=== PATIENT | male | born 1975 | race Caucasian/White ===

== ENCOUNTER 2017-10-15 19:37 | Emergency (ER) | payer OTHER ==
[~2017-10-15] VITALS: Ht 180.3 cm; Wt 92.5 kg
[~2017-10-15 19:37] MED LIST: BUPROPION XL300 MG PO; CEPHALEXIN500 MG PO; CYCLOBENZAPRINE10 MG PO; KETOROLAC TROME10 MG PO; MOBIC7.5 MG PO; NORCO 5-325 TA1 EACH PO; OMEPRAZOLE20 MG; PEPCID20 MG PO; PERCOCET 7.5-31 EACH PO; SUCRALFATE1 GM PO; ZOFRAN ODT4 MG PO; ZOFRAN4 MG PO
[2017-10-15] MEDS ORDERED: MEDROL4 M1 PO (20:27)
[2017-10-15] MEDS ORDERED: PROVENTIL HFA6.7 GM INH (20:27)
[2017-10-15] MEDS ORDERED: ZITHROMAX250 MG PO (20:27)
== END 2017-10-15 20:43 | disposition home or self-care (01) ==
LOC: ED 19:37
DX: J20.9 Acute bronchitis, unspecified (principal); K21.9 Gastro-esophageal reflux disease without esophagitis; F17.200 Nicotine dependence, unspecified, uncomplicated; Z79.899 Other long term (current) drug therapy
CPT/HCPCS: 99283

== ENCOUNTER 2018-05-10 08:39 | Emergency (ER) | payer OTHER ==
[~2018-05-10] VITALS: Ht 180.3 cm; Wt 92.5 kg
[~2018-05-10 08:39] MED LIST changes: +MEDROL4 M1 PO; +PROVENTIL HFA6.7 GM INH; +ZITHROMAX250 MG PO
== END 2018-05-10 09:57 | disposition home or self-care (01) ==
LOC: ED 08:39
PROC: 0HQGXZZ Repair Left Hand Skin, External Approach (ICD-10-PCS; principal; 2018-05-10)
DX: S61.012A Laceration without foreign body of left thumb without damage to nail, initial encounter (principal); F17.200 Nicotine dependence, unspecified, uncomplicated; Z79.899 Other long term (current) drug therapy; Z23 Encounter for immunization; W45.8XXA Other foreign body or object entering through skin, initial encounter
CPT/HCPCS: 12001; 90471; 90715; 99282

== ENCOUNTER 2018-05-20 08:50 | Emergency (ER) | payer OTHER ==
[~2018-05-20] VITALS: Ht 180.3 cm; Wt 92.5 kg
== END 2018-05-20 09:21 | disposition home or self-care (01) ==
LOC: ED 08:50
DX: Z48.02 Encounter for removal of sutures (principal)

== ENCOUNTER 2019-10-13 06:55 | Day surgery (SDC) | payer OTHER ==
[~2019-10-13] VITALS: Ht 180.3 cm; Wt 108.9 kg
--- NOTE | 2019-10-13 07:17 | NUR ---
RT ROBI IN ROOM FOR SMOKING SENSATION
--- NOTE | 2019-10-13 08:17 | NUR ---
10/13/19 0817 Patricia Muñoz 0814 PT ARRIVED TO PACU ON 2 VIA NC, PT WAKES EASILY TO VERBAL STIMULI AND IS REORIENTED TO PACU AND ENCOURAGED TO PASS GAS/AIR. VSS.
--- NOTE | 2019-10-14 07:44 | OR ---
[facility] [address] [place], [place] [address] Signed DATE OF OPERATION: 10/13/2019 SURGEON: Adalgisa Peres MD PREOPERATIVE DIAGNOSIS: Diarrhea and episodic rare rectal bleeding. POSTOPERATIVE DIAGNOSIS: Small polyps, likely hyperplastic (x5). PROCEDURE PERFORMED: Total colonoscopy to cecum with cold morcellation polypectomy x5. ANESTHESIA: Intravenous sedation, fentanyl 100 mcg and Versed 5 mg. INDICATION: This 44-year-old white man is a patient of CHRIS Diallo who has had complaints of diarrhea and very rare episodic bright red rectal bleeding. He is admitted to undergo colonoscopy to better characterize the problem. His family history regarding colon cancer is uncertain as he is adopted. He has had hyperplastic polyps in the past. He has also had cholecystectomy in January of 2016. It is possible that his diarrhea represents a coloretic cause. The risks of bleeding, infection, and perforation were reviewed with him regarding colonoscopy. He understands and wished to proceed. Additionally, it is noted that he has had C difficile colitis in the past. FINDINGS: There is no evidence of C difficile colitis. The prep was good. Complete colonoscopy was undertaken to the cecum. There was a small polyp of the cecum and several in the sigmoid and hyperplastic appearing polyps of the rectosigmoid. All were excised with cold morcellation technique. DESCRIPTION OF PROCEDURE: The patient was brought to the endoscopy suite and placed in lateral decubitus position and given intravenous sedation to the point of slurred speech and nystagmus. Digital rectal examination was normal. An Olympus video colonoscope was passed in the rectum and manipulated throughout the colon. A small polyp was noted in the sigmoid, which was excised. The scope was Electronically Signed By: ADALGISA PERES MD 10/14/19 0744 PATIENT NAME: CAROLE QUINTANA OPERATIVE REPORT DATE OF : 77 REPORT #: [id number] PHYSICIAN: ADALGISA PERES MD PCP: YIMI GRUBER PA-C REPORT IS CONFIDENTIAL AND NOT TO BE RELEASED WITHOUT AUTHORIZATION [facility] [address] [place], [place] [address] Signed advanced beyond this ultimately to the cecum itself. The ileocecal valve and appendiceal orifice were normal. A small polyp was noted in the cecum. This was excised with cold morcellation technique. The scope was withdrawn and examination throughout showed no sign of abnormality into the mid left colon where a small polyp was noted. This was excised as well. Two other similar such polyps were noted in the area and passed as a same specimen. Further withdrawal ultimately showed in the rectosigmoid, hyperplastic appearing polyps, several in number, all excised completely. Retroflexed view showed some internal hemorrhoidal changes. No other problems of concern. The scope was withdrawn and removed. The patient was taken to recovery room in good condition. CONCLUDING DIAGNOSIS: Multiple polyps, most of them hyperplastic. PLAN: We will initiate cholestyramine as a method of symptom control. On the probability, his diarrhea represents a post cholecystectomy type diarrhea. MD DONITA Max/BO /[id number] cc: CHRIS Diallo Copies: ~ Electronically Signed By: ADALGISA PERES MD 10/14/19 0744 PATIENT NAME: CAROLE QUINTANA OPERATIVE REPORT DATE OF : 77 REPORT #: [id number] PHYSICIAN: ADALGISA PERES MD PCP: YIMI GRUBER PA-C REPORT IS CONFIDENTIAL AND NOT TO BE RELEASED WITHOUT AUTHORIZATION
--- NOTE | 2019-10-14 17:36 | PATH ---
[facility] [address] [facility] [place], [place] [address] Signed SPECIMEN(S): A SIGMOID POLYPS SPECIMEN(S): B CECAL POLYPS SPECIMEN(S): C MID DESCENDING POLYPS SPECIMEN(S): D COLON POLYP AT 20 CM SPECIMEN(S): E RECTAL POLYP SPECIMEN(S): F RECTUM SPECIMEN SOURCE: A. SIGMOID POLYPS B. CECAL POLYPS C. MID DESCENDING POLYPS D. COLON POLYP AT 20 CM E. RECTAL POLYP F. RECTUM CLINICAL HISTORY: Diarrhea. Postop: Multiple polyps. MICROSCOPIC DESCRIPTION: Histologic sections of all submitted blocks are examined by light microscopy. These findings, together with the gross examination, support the pathologic diagnosis. FINAL PATHOLOGIC DIAGNOSIS: A. Colon, sigmoid, polyps, polypectomy: - Fragments of hyperplastic polyp(s). - Negative for dysplasia or malignancy. B. Colon, cecum, polyps, polypectomy: - Fragments of colonic mucosa with no histopathologic abnormality. - Negative for dysplasia or malignancy. C. Colon, descending/right, polyps, polypectomy: - Fragments of hyperplastic polyp(s). - Negative for dysplasia or malignancy. D. Colon, polyp at 20 cm, polypectomy: - Hyperplastic polyp. - Negative for dysplasia or malignancy. E. Rectum, polyp, polypectomy: - Fragments of hyperplastic polyp. - Negative for dysplasia or malignancy. F. Rectum, biopsy: - Fragment of hyperplastic polyp. - Fragment of rectal mucosa with mild hyperplastic mucosal changes. PATIENT NAME: LILIANCAROLE JAY PATHOLOGY DATE OF : 77 REPORT #: [id number] PHYSICIAN: MARYJO PATHOLOGY PCP: YIMI GRUBER PA-C REPORT IS CONFIDENTIAL AND NOT TO BE RELEASED WITHOUT AUTHORIZATION [facility] [address] [place], [place] [address] Signed - Negative for dysplasia or malignancy. NAL:emb:C2NR GROSS DESCRIPTION: Six specimens are received in six containers, labeled "TC." A. The specimen, labeled "TC, sigmoid polyps," is received in formalin and consists of three phelps tissue fragments ranging 0.4 to 0.2 cm. Specimen is entirely submitted in cassette (A1). B. The specimen, labeled "TC, cecal polyps," is received in formalin and consists of three phelps tissue fragments measuring 0.3 cm each. Specimen is entirely submitted in cassette (B1). C. The specimen, labeled "TC, mid descending polyps," is received in formalin and consists of four phelps tissue fragments ranging 0.4-0.2 cm. Specimen is entirely submitted in cassette (C1). D. The specimen, labeled "TC, colon polyp at 20 cm," is received in formalin and consists of a single phelps tissue polyp measuring 0.4 x 0.3 x 0.2 cm. Specimen is entirely submitted in cassette (D1). E. The specimen, labeled "TC, rectal polyp," is received in formalin and consists of three minute phelps tissue fragments ranging 0.2 to 0.1 cm. Specimen is entirely submitted in cassette (E1). F. The specimen, labeled "TC, rectum," is received in formalin and consists of one phelps tissue polyp measuring 0.4 x 0.3 x 0.2 cm. Specimen is entirely submitted in cassette (F1). AT (under the direct supervision of a pathologist) The Gross Description was prepared using a voice recognition system. The report was reviewed for accuracy; however, sound-alike word errors, addition and/or deletions may occur. If there is any question about this report, please contact Client Services. PERFORMING LABORATORY: The technical component was performed by [facility], [address] [place] [id number] (Waiter/Waitress Second Class: Sofy Tomlinson MD; CLIA# [id number]). Professional interpretation [facility], [address] [address] (Waiter/Waitress Second Class: Sunny Elise MD; CLIA# [id number]). Diagnostician: Maryana Abel MD Pathologist Electronically Signed 10/14/2019 PATIENT NAME: CAROLE QUINTANA PATHOLOGY DATE OF : 77 REPORT #: [id number] PHYSICIAN: MARYJO PATHOLOGY PCP: YIMI GRUBER PA-C REPORT IS CONFIDENTIAL AND NOT TO BE RELEASED WITHOUT AUTHORIZATION [facility] [address] [place], [place] [address] Signed Copies: ~ PATIENT NAME: CAROLE QUINTANA PATHOLOGY DATE OF : 77 REPORT #: [id number] PHYSICIAN: MARYJO FUNEZ PCP: YIMI GRUBER PA-C REPORT IS CONFIDENTIAL AND NOT TO BE RELEASED WITHOUT AUTHORIZATION
== END 2019-10-13 08:52 | disposition home or self-care (01) ==
LOC: OPS 06:55 → DS 06:55 → OPS 08:52
PROVIDERS: Surgery
PROC: 0DBH8ZZ Excision of Cecum, Via Natural or Artificial Opening Endoscopic (ICD-10-PCS; 2019-10-13)
PROC: 0DBM8ZZ Excision of Descending Colon, Via Natural or Artificial Opening Endoscopic (ICD-10-PCS; 2019-10-13)
PROC: 0DBP8ZZ Excision of Rectum, Via Natural or Artificial Opening Endoscopic (ICD-10-PCS; 2019-10-13)
PROC: 0DBE8ZZ Excision of Large Intestine, Via Natural or Artificial Opening Endoscopic (ICD-10-PCS; 2019-10-13)
PROC: 0DBN8ZZ Excision of Sigmoid Colon, Via Natural or Artificial Opening Endoscopic (ICD-10-PCS; principal; 2019-10-13 06:45)
DX: K63.5 Polyp of colon (principal); K62.1 Rectal polyp; K64.8 Other hemorrhoids; K52.9 Noninfective gastroenteritis and colitis, unspecified; F17.210 Nicotine dependence, cigarettes, uncomplicated; K21.9 Gastro-esophageal reflux disease without esophagitis; Z90.49 Acquired absence of other specified parts of digestive tract; Z79.899 Other long term (current) drug therapy
CPT/HCPCS: 99406; J2250; J3010; J7121

== ENCOUNTER 2020-05-26 12:46 | Emergency (ER) | payer OTHER ==
[~2020-05-26] VITALS: Ht 180.3 cm; Wt 108.9 kg
--- OUTSIDE RECORDS SUMMARY | ~2020-05-26 | XMS | Clinical Summary ---
Demographics + + + | Address | [address] | | | [place] [address] | + + + | Home Phone | | + + + | Preferred Language | Unknown | + + + | Marital Status | Single | + + + | Holiness Affiliation | Unknown | + + + | Race | White | + + + | Ethnic Group | Not or | + + + Author + + + | Author | [facility] | | | and [place] | + + + | Organization | [facility] | | | [facility] [place] | + + + | Address | Unknown | + + + | Phone | Unavailable | + + + Support + + +---------+ + | Name | Relationship | Address | Phone | + + +---------+ + | Provided None | ECON | Unknown | | + + +---------+ + Care Team Providers + +------+ + | Care Competitive Intelligence Manager Name | Role | Phone | + +------+ + | Hina Kim | PCP | | | PA-C | | | + +------+ + Allergies No Known Allergies Medications + + + +---------+------+------+-------+ | Medication | Sig | Dispensed | Refills | Star | End | Statu | | | | | | t | Date | s | | | | | | Date | | | + + + +---------+------+------+-------+ | omeprazole | Take 20 mg by mouth | | 0 | 07/1 | | Activ | | (PRILOSEC) 20 mg | Daily. | | | 1/20 | | e | | capsule | | | | 19 | | | + + + +---------+------+------+-------+ | NICOTROL NS 10 | 10 mg by Nasal route | | 0 | 07/1 | | Activ | | MG/ML SOLN | Daily. | | | 20 | | e | | | | | | 19 | | | + + + +---------+------+------+-------+ | buPROPion HCl | Take by mouth. | | 0 | | | Activ | | (WELLBUTRIN PO) | | | | | | e | + + + +---------+------+------+-------+ | FLUOXETINE HCL PO | Take by mouth. | | 0 | | | Activ | | | | | | | | e | + + + +---------+------+------+-------+ Active Problems + + + | Problem | Noted Date | + + + | Abdominal bloating | 05/27/2019 | + + + | Calculus of gallbladder with cholecystitis | 05/27/2019 | + + + | Clostridium difficile colitis | 05/27/2019 | + + + | Dyspeptic diarrhea | 05/27/2019 | + + + Social History + +-------+ +--------+------+ | Tobacco Use | Types | Packs/Day | Years | Date | | | | | Used | | + +-------+ +--------+------+ | Light Tobacco Smoker | | | | | + +-------+ +--------+------+ + +---+---+---+ | Smokeless Tobacco: | | | | | Never Used | | | | + +---+---+---+ + + | Comments: Working on quitting | + + + + +---------+ + | Alcohol Use | Drinks/Week | oz/Week | Comments | + + +---------+ + | Never | | | | + + +---------+ + + + + + | Alcohol Habits | Answer | Date Recorded | + + + + | How often do you have a drink containing | Never | 05/27/2019 | | alcohol? | | | + + + + | How many drinks containing alcohol do you | Not asked | | | have on a typical day when you are | | | | drinking? | | | + + + + | How often do you have six or more drinks on | Not asked | | | one occasion? | | | + + + + + + + | Sex Assigned at | Date Recorded | | | | + + + | Not on file | | + + + Last Filed Vital Signs + + + + + | Vital Sign | Reading | Time Taken | Comments | + + + + + | Blood Pressure | - | - | | + + + + + | Pulse | - | - | | + + + + + | Temperature | - | - | | + + + + + | Respiratory Rate | - | - | | + + + + + | Oxygen Saturation | - | - | | + + + + + | Inhaled Oxygen | - | - | | | Concentration | | | | + + + + + | Weight | 104.3 kg (230 lb) | 05/27/2019 3:42 PM | | | | | PDT | | + + + + + | Height | 180.3 cm (5' 11") | 05/27/2019 3:42 PM | | | | | PDT | | + + + + + | Body Mass Index | 32.08 | 05/27/2019 3:42 PM | | | | | PDT | | + + + + + Plan of Treatment + + + + + | Health Maintenance | Due Date | Last | Comments | | | | Done | | + + + + + | Hepatitis C | | | | | Screening | 6 | | | + + + + + | Vaccine: | | | | | Pneumococcal 19-64 | 2 | | | | (1 of 1 - PPSV23) | | | | + + + + + | Vaccine: Influenza | | 09/04/20 | | | (#1) | 0 | 09 | | + + + + + | Vaccine: | | 05/10/20 | | | Dtap/Tdap/Td (2 - | 8 | 18 | | | Td) | | | | + + + + + Results Not on filefrom Last 3 Months Insurance + +--------+ +--------+ +---------+--------+ | Payer | Benefi | Subscriber | Effect | Phone | Address | Type | | | t Plan | ID | raymond | | | | | | / | | Dates | | | | | | Group | | | | | | + +--------+ +--------+ +---------+--------+ | [employer] | MOD[employer] | [id number] | | [phone] | | Medica | | MEDICAID HMO | HEALTH | | [phone]-[id number] | 1 | | id | | | MDCD | | esent | | | | | | [place]MO [place] | | | | | | + +--------+ +--------+ +---------+--------+ + +--------+ +--------+ + + | Guarantor Name | Accoun | Relation to | Date | Phone | Billing Address | | | t Type | Patient | of | | | | | | | | | | + +--------+ +--------+ + + | Freddie Caraballo | Person | Self [birth year] | [address] | | | al/Fam | | 1974 | [phone] | [place] | | | estela | | | 9 (Home) | [address] | | | | | | [phone] | | | | | | | 1 (Work) | | + +--------+ +--------+ + + | Freddie Caraballo | Person | Self [birth year] | | [address] | | | al/Fam | | 1974 | [phone] | [place] | | | estela | | | 9 (Home) | [address] | | | | | | [phone] | | | | | | | 1 (Work) | | + +--------+ +--------+ + + Advance Directives + + + + + | Type | Date Recorded | Patient | Explanation | | | | Enamel Dipper | | + + + + + | Power of | | | | | Cook Manager | | | | + + + + + | Advance | | | | | Directive | | | | + + + + +
--- OUTSIDE RECORDS SUMMARY | ~2020-05-26 | XMS | Encounter Summary ---
Demographics + + + | Address | [address] | | | [place] [address] | + + + | Home Phone | | + + + | Preferred Language | Unknown | + + + | Marital Status | Single | + + + | Moravian Affiliation | Unknown | + + + | Race | White | + + + | Ethnic Group | Not or | + + + Author + + + | Author | [facility] | | | and [place] | + + + | Organization | [facility] | | | and [...] Team Providers + +------+ + | Care Flame Annealing Machine Operator Name | Role | Phone | + +------+ + | Hina Kim | PCP | | | PA-C | | | + +------+ + Encounter Details +--------+ + + + + | Date | Type | Department | Care Team | Description | +--------+ + + + + | 05/07/ | Imaging | [facility] | Provider, | | | 2019 | Exam | [facility] | Historical, MD [address] | | | | | [address] | | | | | [address] | [place] [address] | | | | | [place] [address] | | | | | | [phone] | | | +--------+ + + + + Social History + +-------+ +--------+------+ | Tobacco Use | Types | Packs/Day | Years | Date | | | | | Used | | + +-------+ +--------+------+ | Never Assessed | | | | | + +-------+ +--------+------+ + + + | Sex Assigned at | Date Recorded | | | | + + + | Not on file | | + + + documented as of this encounter Plan of Treatment Not on filedocumented as of this encounter Procedures + +--------+ + + + | Procedure Name | Priori | Date/Time | Associated Diagnosis | Comments | | | ty | | | | + +--------+ + + + | XR KNEE LEFT 1 - 2 | Routin | 09/07/2018 | | Results for this | | VW | e | 12:00 AM | | procedure are in the | | | | PST | | results section. | + +--------+ + + + documented in this encounter Results XR Knee Left 1 - 2 Vw (09/07/2018 12:00 AM PST) + + | Specimen | + + | | + + + + + | Narrative | Performed At | + + + | External films for comparison only | [facility] | | | | | No results will be in the chart. | | + + + + +---------+ + + | Performing | Address | City/State/Zipcode | Phone Number | | Organization | | | | + +---------+ + + | [facility] | | | | + +---------+ + + documented in this encounter Visit Diagnoses Not on filedocumented in this encounter"
--- OUTSIDE RECORDS SUMMARY | ~2020-05-26 | XMS | Encounter Summary ---
Demographics + + + | Address | [address] | | | [place] [address] | + + + | Home Phone | | + + + | Preferred Language | Unknown | + + + | Marital Status | Single | + + + | Advent Affiliation | Unknown | + + + | Race | White | + + + | Ethnic Group | Not or | + + + Author + + + | Author | [facility] | | | and [place] | + + + | Organization | [facility] | | | and [...] Team Providers + +------+ + | Care Sales And Marketing Administrator Name | Role | Phone | + +------+ + | Hina Kim | PCP | | | PA-C | | | + +------+ + Encounter Details +--------+ + + + + | Date | Type | Department | Care Team | Description | +--------+ + + + + | 09/07/ | Imaging | [facility] | Provider, | Canceled (OTHER) | | 2019 | Exam | [facility] | MD [address] | | | | | IMAGING [address] | [address] | | | | | [address] | [place] [address] | | | | | [place] [address] | | | | | | [phone] | | | +--------+ + + + [...] Not on filedocumented as of this encounter Visit Diagnoses Not on filedocumented in this encounter"
--- OUTSIDE RECORDS SUMMARY | ~2020-05-26 | XMS | Encounter Summary ---
Demographics + + + | Address | [address] | | | [place] [address] | + + + | Home Phone | | + + + | Preferred Language | Unknown | + + + | Marital Status | Single | + + + | Pentecostalism Affiliation | Unknown | + + + | Race | White | + + + | Ethnic Group | Not or | + + + Author + + + | Author | [facility] | | | and [place] | + + + | Organization | [facility] | | | and [...] Team Providers + +------+ + | Care Imaging System Administrator Name | Role | Phone | + +------+ + PCP | Unavailable | + +------+ + Encounter Details +--------+ + + + + | Date | Type | Department | Care Team | Description | +--------+ + + + + | 07/09/ | Emergency | [facility] | [place], | MYALGIA AND MYOSITIS | | 2001 | | MEDICAL CENTER | MD [address] | NOS | | | | EMERGENCY CENTER | [place] | | | | | [address] | [address] | | | | | [place] | [phone] | | | | | [address] | | | | | | [phone] | | | +--------+ + + + [...] filedocumented as of this encounter Visit Diagnoses + + | Diagnosis | + + | Myalgia and myositis, unspecified Mylagia and myositis, unspecified | + + documented in this encounter"
--- OUTSIDE RECORDS SUMMARY | ~2020-05-26 | XMS | Encounter Summary ---
Demographics + + + | Address | [address] | | | [place] [address] | + + + | Home Phone [...] Author + + + | Author | [facility] | | | and [place] | + + + | Organization | [facility] | | [...] Team Providers + +------+ + | Care Dial Screw Assembler Name | Role | Phone | + +------+ + PCP | Unavailable | + +------+ + Encounter Details +--------+ + + + + | Date | Type | Department | Care Team | Description | +--------+ + + + + | 01/01/ | Emergency | [facility] | Conversion | | | 2001 | | MEDICAL CENTER | Transaction, | | | | | EMERGENCY CENTER | Provider Unknown | | | | | [address] | | | | | | [place], [place] | (Fax) | | | | | [address] | | | | | | [phone] | | | +--------+ + + + [...]
--- OUTSIDE RECORDS SUMMARY | ~2020-05-26 | XMS | Encounter Summary ---
Demographics + + + | Address | [address] | | | [place] [address] | + + + | Home Phone | | + + + | Preferred Language | Unknown | + + + | Marital Status | Single | + + + | Religion Affiliation | Unknown | + + + | Race | White | + + + | Ethnic Group | Not or | + + + Author + + + | Author | [facility] | | | and [place] | + + + | Organization | [facility] | | | and [...] Team Providers + +------+ + | Care Store Group Manager Name | Role | Phone | + +------+ + PCP | Unavailable | + +------+ + Encounter Details +--------+ + + + + | Date | Type | Department | Care Team | Description | +--------+ + + + + | 08/11/ | Emergency | [facility] | Conversion | [facility] | | 2001 | | MEDICAL CENTER | Transaction, | | | | | EMERGENCY CENTER | Provider Unknown | | | | | [address] [facility] | | | | | | [place], [place] | (Fax) | | | | | [address] | | | | | | [phone] | | | +--------+ + + + [...] + | Diagnosis | + + | Backache, unspecified | + + documented in this encounter"
--- OUTSIDE RECORDS SUMMARY | ~2020-05-26 | XMS | Encounter Summary ---
Demographics + + + | Address | [address] | | | [place] [address] | + + + | Home Phone | | + + + | Preferred Language | Unknown | + + + | Marital Status | Single | + + + | Mormon Affiliation | Unknown | + + + | Race | White | + + + | Ethnic Group | Not or | + + + Author + + + | Author | [facility] | | | and [place] | + + + | Organization | [facility] | | | [...] Team Providers + +------+ + | Care Excavator Backhoe Operator Name | Role | Phone | + +------+ + PCP | Unavailable | + +------+ + Encounter Details +--------+ + + + + | Date | Type | Department | Care Team | Description | +--------+ + + + + | 07/07/ | Emergency | [facility] | Kevin Rose, | Dysphagia | | 2001 | | MEDICAL CENTER | [address] | | | | | EMERGENCY CENTER | [place], [place] | | | | | [address] | [address] | | | | | [place], [place] | [phone] | | | | | [address] | | | | | | [phone] | | | +--------+ + + + [...] + | Diagnosis | + + | Dysphagia Dysphagia, unspecified | + + documented in this encounter"
--- OUTSIDE RECORDS SUMMARY | ~2020-05-26 | XMS | Encounter Summary ---
Demographics + + + | Address | [address] | | | [place] [address] | + + + | Home Phone | | + + + | Preferred Language | Unknown | + + + | Marital Status | Single | + + + | Church Affiliation | Unknown | + + + | Race | White | + + + | Ethnic Group | Not or | + + + Author + + + | Author | [facility] | | | and [place] | + + + | Organization | [facility] | | [...] Team Providers + +------+ + | Care Manager Steel Name | Role | Phone | + [...] | | | | [address] | [place] [address] | | | | | [place] [address] | | | | | | [phone] | | | +--------+ + + + [...]
--- OUTSIDE RECORDS SUMMARY | ~2020-05-26 | XMS | Encounter Summary ---
Demographics + + + | Address | [address] | | | [place] [address] | + + + | Home Phone | | + + + | Preferred Language | Unknown | + + + | Marital Status | Single | + + + | Temple Affiliation | Unknown | + + + | Race | White | + + + | Ethnic Group | Not or | + + + Author + + + | Author | [facility] | | | and [place] | + + + | Organization | [facility] | | | [...] Team Providers + +------+ + | Care Four H [place] Agent Name | Role | Phone | + +------+ + PCP | Unavailable | + +------+ + Encounter Details +--------+ + + + + | Date | Type | Department | Care Team | Description | +--------+ + + + + | 11/18/ | Hospital | [facility] | Conversion | | | 2002 - | Encounter | CONVERSION [address] | Transaction, | | | | [address] | Provider Unknown | | | 12/15/ | | [place], [place] | [phone] | | | 2002 | | [address] | | | | | | [phone] | | | +--------+ + + + [...]
--- OUTSIDE RECORDS SUMMARY | ~2020-05-26 | XMS | Encounter Summary ---
Demographics + + + | Address | [address] | | | [place] [address] | + + + | Home Phone | | + + + | Preferred Language | Unknown | + + + | Marital Status | Single | + + + | Congregational Affiliation | Unknown | + + + | Race | White | + + + | Ethnic Group | Not or | + + + Author + + + | Author | [facility] | | | and [place] | + + + | Organization | [facility] | | [...] Team Providers + +------+ + | Care Junior Loan Processor Name | Role | Phone | + +------+ + | Hina Kim | PCP | | | PA-C | | | + +------+ + Reason for Referral Evaluate & Treat (Routine) +--------+ + + + + + | Status | Reason | Specialty | Diagnoses / | Referred By | Referred To | | | | | Procedures | Contact | Contact | +--------+ + + + + + | Closed | Specialty | Physical | Diagnoses | [place], | [facility] | | | Services | Therapy | Chronic | [place] | [facility] | | | Required | | pain of left | [facility], | PHYSICAL | | | | | knee | [address] | | | | | | [address] | [facility] | | | | | | [place], | [place], [place] | | | | | | [place] | [address] | | | | | | [address] | Phone: | | | | | | Phone: | [phone] | | | | | | [phone] | Fax: | | | | | | Fax: | [phone] | | | | | | [phone] | | +--------+ + + + + + Reason for Visit + + + | Reason | Comments | + + + | New Patient | | + + + | Knee Pain | Left | + + + Evaluate & Treat (Routine) +--------+--------+ + + + + | Status | Reason | Specialty | Diagnoses / | Referred By | Referred To | | | | | Procedures | Contact | Contact | +--------+--------+ + + + + | Closed | | Orthopedic | Diagnoses | Julio, | Nya, | | | | Surgery | Pain in | Hina | Jeison | | | | | left knee | Johanny, | MD [address] | | | | | | PA-C [address] | [address] | | | | | [address] | [address] [place] | | | | | | [place] | [place] | | | | | | [place], | [address] | | | | | | [place] | Phone: | | | | | | [address] | [phone] | | | | | | Phone: | Fax: | | | | | | [phone] | [phone] | | | | | | Fax: | | | | | | | [phone] | | +--------+--------+ + + + + Encounter Details +--------+---------+ + + + | Date | Type | Department | Care Team | Description | +--------+---------+ + + + | 05/27/ | Office | [facility] | Jeison Fay | Chronic pain of left | | 2019 | Visit | ORTHOPEDIC SURGERY | [address] | knee (Primary Dx) | | | | [address] | [address] [place] | | | | | [place] | [place] [address] | | | | | [address] | [phone] | | | | | [phone] | | | +--------+---------+ + + + Social History + +-------+ [...] + + documented as of this encounter Last Filed Vital Signs + + + [...] | | + + + + + documented in this encounter Patient Instructions Patient Instructions Jeison Fay MD - 05/27/2019 3:45 PM PDTFormatting of t his note might be different from the original. Knee Pain Knee pain is very common. It s especially common in active people who put a lot of pressu re on their knees, like runners. It affects women more often than men. Your kneecap (patella) is a thick, round bone. It covers and protects the front portion of your knee joint. It moves along a groove in your thighbone (femur) as part of the patellofem oral joint. A layer of cartilage surrounds the underside of your kneecap. This layer protect s it from grinding against your femur. When this cartilage softens and breaks down, it can cause knee pain. This is partly because of repetitive stress. The stress irritates the lining of the joint. This causes pain in the underlying bone. What causes knee pain? Many things can cause knee pain. You may have more than one cause. Some of these include: Overuse of the knee joint The kneecap doesn t line up with the tissue around it Damage to small nerves in the area Damage to the ligament-like structure that holds the kneecap in place (retinaculum) Breakdown of the bone under the cartilage Swelling in the soft tissues around the kneecap Injury You might be more likely to have knee pain if you: Exercise a lot Recently increased the intensity of your workouts Have a body mass index (BMI) greater than 25 Have poor alignment of your kneecap Walk with your feet turned overly outward or inward Have weakness in surrounding muscle groups (inner quad or hip adductor muscles) Have too much tightness in surrounding muscle groups (hamstrings or iliotibial band) Have a recent history of injury to the area Are female Symptoms of knee pain This type of knee pain is a dull, aching pain in the front of the knee in the area under an d around the kneecap. This pain may start quickly or slowly. Your pain might be worse when y ou squat, run, or sit for a long time. You might also sometimes feel like your knee is givin g out. You may have symptoms in one or both of your knees. Diagnosing knee pain Your healthcare provider will ask about your medical history and your symptoms. Be sure to describe any activities that make your knee pain worse. He or she will look at your knee. Th is will include tests of your range of motion, strength, and areas of pain of your knee. You r knee alignment will be checked. Your healthcare provider will need to rule out other causes of your knee pain, such as arth ritis. You may need an imaging test, such as an X-ray or MRI. Treatment for knee pain Treatments that can help ease your symptoms may include: Avoiding activities for a while that make your pain worse, returning to activity over ti me Icing the outside of your knee when it causes you pain Taking [id number]-kpcclsb pain medicine Wearing a knee brace or taping your knee to support it Wearing special shoe inserts to help keep your feet in the proper alignment Doing special exercises to stretch and strengthen the muscles around your hip and your k nee These steps help most people manage knee pain. But some cases of knee pain need to be treat ed with surgery. You may need surgery right away. Or you may need it later if other treatmen ts don t work. Your healthcare provider may refer you to an orthopedic surgeon. He or she will talk with you about your choices. Preventing knee pain Losing weight and correcting excess muscle tightness or muscle weakness may help lower your risk. In some cases, you can prevent knee pain. To help prevent a flare-up of knee pain, you do t hese things: Regularly do all the exercises your doctor or physical therapist advises Support your knee as advised by your doctor or physical therapist Increase training gradually, and ease up on training when needed Have an expert check your gait for running or other sporting activities Stretch properly before and after exercise Replace your running shoes regularly Lose excess weight When to call your healthcare provider Call your healthcare provider right away if: Your symptoms don t get better after a few weeks of treatment You have any new symptoms Date Last Reviewed: 12/16/201619997082-2490 [employer]. [address] [place] [address]. All [facility] reserved. This information is not intended as a substitute for professional medical care. Always follow your healthcare professional's instructions. documented in this encounter Progress Notes Jeison Fay MD - 05/27/2019 3:45 PM PDTFormatting of this note might be dif ferent from the original. [facility] HISTORY AND PHYSICAL EXAMINATION Pt. Name/Age/: Freddie Caraballo 43 y.o. 1975 Primary Care Physician: Hina Kim Chief Complaint/Reason for Visit: New Patient and Knee Pain (Left) History of Present Illness: The patient is a pleasant 43 y.o. male who presents with chronic left knee pain. He states that both of his knees have hurt since the fall he had 15 months ago. He fell 15 feet and landed on his feet on the concrete. He did not fell onto his side. He localizes the pain o n both sides to the joint line and just distal to it. He points across the entire knee. Si nce that time, steps, ladders, long walks, driving, riding in a car makes his pain worse. Mohsen jackson is tried anti-inflammatories which have not helped, ice and heat without relief. His pain is a 6 out of 10 at rest and a 9 out of 10 at its worst. He feels like this is been slowly getting worse over time. He is able to do some of his normal daily activities albeit with pain. He currently smokes about 1 to 2 cigarettes a day. Of note, he has not had any physi maninder therapy for this yet nor has he had any injections.. Past Medical History: History reviewed. No pertinent past medical history. Past Surgical History: Procedure Laterality Date MANDIBLE FRACTURE SURGERY Allergies: No Known Allergies Current Medications: Current Outpatient Medications Medication Sig Dispense Refill buPROPion HCl (WELLBUTRIN PO) Take by mouth. FLUOXETINE HCL PO Take by mouth. NICOTROL NS 10 MG/ML SOLN 10 mg by Nasal route Daily. omeprazole (PRILOSEC) 20 mg capsule Take 20 mg by mouth Daily. No current facility-administered medications for this visit. Family History: History reviewed. No pertinent family history. Social History: Social History Socioeconomic History Marital status: Single Spouse name: Not on file Number of children: Not on file Years of education: Not on file Highest education level: Not on file Social Needs Financial resource strain: Not on file Food insecurity - worry: Not on file Food insecurity - inability: Not on file Transportation needs - medical: Not on file Transportation needs - non-medical: Not on file Occupational History Not on file Tobacco Use Smoking status: Light Tobacco Smoker Smokeless tobacco: Never Used Tobacco comment: Working on quitting Substance and Sexual Activity Alcohol use: Never Frequency: Never Drug use: Never Sexual activity: Not on file Other Topics Concern Not on file Social History Narrative Not on file Review of Systems All of these are negative unless otherwise marked Eyes: [] Double vision [] Glasses/contacts [] Failing vision Respiratory: [] Asthma/Wheezing [] Pneumonia [] Night sweats [x] Shortness of breath [] Chronic cough [] Coughing up blood [] Exposure to tuberculosis Cardiovascular: [] Heart Problems [] Hypertension [] Heart murmur [] Palpitations [] Rheumatic fever [] Phlebitis [] Chest pain [] Ankle swelling [] Leg cramps [] Racin g heart [] Skipping beats [] Blood clots Urinary Tract: [] Painful urination [] Kidney Stones [] Any urine leakage [] Weak urine stream [] Night urination [] Urine infections [] Bedwetting [] Blood in urine Ear/Nose/Throat: [] Frequent Colds [] Sinus Disease [] Nose obstruction [] Sneezing Spells [] Change in taste [x] Artificial teeth [] Ears ringing [] Ear pain [] Hearing loss [] Teeth problems [] Hoarseness [] Neck swelling [] Sore throat [] Congestion [] Nosebleeds [x] Nasal allergies Gastrointestinal: [x] Abdominal pain [] Heartburn [x] Blood from rectum [x] Colitis [] Gallbladder problems [] Troub le swallowing [x] Bloated stomach [x] Change in stools [] Vomiting blood [] Nausea [x] Hemorrhoids [] Jaundice [] Hepatitis [x] Diarrhea [] Constipation [] Diverticulitis Musculoskeletal: [] Physical handicaps [x] Back or shoulder pain []Rheumatoid disease [] Osteoarthritis [x] Joint pain [] Joint swelling []Gout [x] Leg cramps at night Skin: [] Skin rashes [x] Itching/Burning [] Skin bruises easi ly [] Artificial tanning [] Skin cancer [] Hair loss [x] Changes in moles Psychiatric: [x] Depression [] Suicidal thoughts [] Sleep pattern changes [] Appetite changes [] Recent counseling [x] Nervousness/anxiety [] Physical violence [] Marital problems Neurological: [] Headaches [] Seizures [] Stroke/TIA [] Faintness [x] Tremors [] Numbness [] Dizziness [] Changes in handwriting [] Memory loss [] Shooting pains Endocrine: [] Thyroid [] Diabetes Systemic: []Weight loss/gain (over 10 lbs) []Fever/chills []Fatigue [] Sleeping Difficulties [] Speech change [] Voice change Admission Weight: Weight: 104.3 kg (230 lb) BMI: Body mass index is 32.08 kg/m. Physical Examination: Ht 1.803 m (5' 11") | Wt 104.3 kg (230 lb) | BMI 32.08 kg/m General: Alert, oriented, no acute distress HEENT: Normocephalic, atraumatic Cardiovascular: Regular rate and rhythm Respiratory: Breathing normally at a regular rate Ortho Exam Left Knee Exam Tenderness: Medial and lateral joint line bilaterally Right Knee Passive Range of Motion: 0/140 Left Knee Passive Range of Motion: 0/140 Right Knee Left Knee Anterior Drawer Negative Negative Posterior Drawer Negative Negative Elise's Test Negative Negative Varus Stress Negative Negative Valgus Stress Negative Negative Lexis's Negative Negative Patellar Translation 1+ 1+ Patellar grind Positive Negative Sensation intact to light touch in the first dorsal webspace, medial, lateral, dorsal and p lantar foot. Dorsalis pedis and posterior tibial pulses 2+. Able to plantarflex, dorsiflex, shanda and invert the ankle. Diagnostic Studies: Imaging 4 views of the left knee obtained today demonstrate mild medial joint space narrowing of th e knees bilaterally. No significant lateral joint space narrowing. No patellofemoral osteo arthritis is noted on the left side. No fractures or dislocations noted. Labs- No results found for: NA, K, CL, CO2, ANIONGAP, GLU, BUN, CREA, GFRNONAA, CALCIUM, ALBUMIN, BILITOT, TOTALPROTEIN, AST, ALT, ALKPHOS, WBC, HGB, HCT, MCV, LABPLAT, PLT, ESR, CRP, LIPAS E, AMYLASE, PT, INR Assessment and Plan: 1. Chronic pain of left knee XR Knee Left 4 + Vw The patient is a pleasant 43 y.o. male who presents with chronic left knee pain likely due to an impaction injury. This may be a subchondral injury or cartilaginous injury.. Treatmen t options were discussed with the patient including non-operative treatment modalities. Cons idering the nature of the patient's condition, decision was made to proceed with physical th erapy. Surgery would not likely to be helpful for this chronic condition. The goal of ther apy will be work on restoring normal strength and range of motion to the joint. His range o f motion is good but he may very well benefit from some strengthening. Hopefully that signi ficantly helps his pain. We will plan on seeing him back in 2 months. Follow-up: Return in about 2 months (around 07/27/2019). with no x-ray Portions of this report were transcribed using voice recognition software. Every effort wa s made to ensure accuracy; however, inadvertent computerized automatic coil machine operator errors may be pre sent. I appreciate the opportunity to help with the management of this patient. Jeison Fay MD documented in this encounter Plan of Treatment + + +--------+ + + | Name | Type | Priori | Associated Diagnoses | Order Schedule | | | | ty | | | + + +--------+ + + | [facility] | Outpatient | Routin | Chronic pain of | Ordered: 05/27/2019 | | Hospital Physical | Referral | e | left knee | | | Therapy, External - | | | | | | AMB Referral | | | | | + + +--------+ + + documented as of this encounter Results XR Knee Left 4 + Vw (05/27/2019 3:31 PM PDT) + + | Specimen | + + | | + + + + + | Narrative | Performed At | + + + | CLINICAL INFORMATION: Left Knee pain. COMPARISON: 09/07/2018. | [facility] | | FINDINGS: 4 views of the left knee. Bones: No fracture or | | | dislocation. No periostitis. Joints: Joint spaces are preserved | | | and subchondral surfaces are smooth. No significant joint effusion. | | | Superior patellar osteophyte formation. Soft tissue: No swelling | | | or abnormal calcification. IMPRESSION - Probable early | | | patellofemoral joint degenerative changes. Dictated and Signed by: | | | Emiliano Jenkins MD Electronically signed: 05/27/2019 7:27 PM | | + + + + + | Procedure Note | + + | Anuj Joseph Results In - 05/27/2019 7:30 PM PDT CLINICAL INFORMATION: Left Knee pain. | | | | COMPARISON: 09/07/2018. | | | | FINDINGS: | | 4 views of the left knee. | | | | Bones: No fracture or dislocation. No periostitis. | | | | Joints: Joint spaces are preserved and subchondral surfaces are smooth. No | | significant joint effusion. Superior patellar osteophyte formation. | | | | Soft tissue: No swelling or abnormal calcification. | | | | IMPRESSION - | | | | Probable early patellofemoral joint degenerative changes. | | | | Dictated and Signed by: Emiliano Jenkins MD | | Electronically signed: 05/27/2019 7:27 PM | + + + +---------+ + + | Performing | Address | City/State/Zipcode | Phone Number | | Organization | | | | + +---------+ + + | [facility] | | | | + +---------+ + + documented in this encounter Visit Diagnoses + + | Diagnosis | + + | Chronic pain of left knee - Primary Pain in joint, lower leg | + + documented in this encounter
--- OUTSIDE RECORDS SUMMARY | ~2020-05-26 | XMS | Encounter Summary ---
Demographics + + + | Address | [address] | | | [place] [address] | + + + | Home Phone [...] Author + + + | Author | [facility] | | | and [place] | + + + | Organization | [facility] | | | [...] Team Providers + +------+ + | Care Balloon Design Printer Name | Role | Phone | + +------+ + | Hina Kim | PCP | | | PA-C | | | + +------+ + Encounter Details +--------+ + + + + | Date | Type | Department | Care Team | Description | +--------+ + + + + | 05/27/ | [facility] | [facility] | Jeison Fay | Left knee pain, | | 2019 | Encounter | [facility] | [address] | unspecified | | | | [address] | [address] | chronicity | | | | [place], [place] | [place] [address] | | | | | [address] | [phone] | | | | | [phone] | | | +--------+ + + + [...] + + documented as of this encounter Medications at Time of Discharge + + + +---------+ + + | Medication | Sig | Dispensed | Refills | Start | End Date | | | | | | Date | | + + + +---------+ + + | buPROPion HCl | Take by mouth. | | 0 | | | | (WELLBUTRIN PO) | | | | | | + + + +---------+ + + | FLUOXETINE HCL PO | Take by mouth. | | 0 | | | + + + +---------+ + + | NICOTROL NS 10 | 10 mg by Nasal route | | 0 | 04/02/20 | | | MG/ML SOLN | Daily. | | | 19 | | + + + +---------+ + + | omeprazole | Take 20 mg by mouth | | 0 | 03/27/20 | | | (PRILOSEC) 20 mg | Daily. | | | 19 | | | capsule | | | | | | + + + +---------+ + + documented as of this encounter Plan of Treatment Not on filedocumented as of this encounter Procedures + +--------+ + + + | Procedure Name | Priori | Date/Time | Associated Diagnosis | Comments | | | ty | | | | + +--------+ + + + | XR KNEE LEFT 4 + VW | Routin | 05/27/2019 | Left knee pain, | Results for this | | | e | 3:31 PM | unspecified | procedure are in the | | | | PDT | chronicity | results section. | + +--------+ + + + documented in this encounter Results XR Knee Left 4 [...] + | Diagnosis | + + | Left knee pain, unspecified chronicity | + + documented in this encounter"
--- OUTSIDE RECORDS SUMMARY | ~2020-05-26 | XMS | Encounter Summary ---
Demographics + + + | Address | [address] | | | [place] [address] | + + + | Home Phone | | + + + | Preferred Language | Unknown | + + + | Marital Status | Single | + + + | Alevism Affiliation | Unknown | + + + | Race | White | + + + | Ethnic Group | Not or | + + + Author + + + | Author | [facility] | | | and [place] | + + + | Organization | [facility] | | [...] Team Providers + +------+ + | Care Historic Preservationist Name | Role | Phone | + +------+ + | Hina Kim | PCP | | | PA-C | | | + +------+ + Encounter Details +--------+ + + + + | Date | Type | Department | Care Team | Description | +--------+ + + + + | 07/10/ | Orders Only | [facility] | Hina Kim | | | 2018 | | CONVERSION [address] | [address] [place] | | | | | [address] | [address] | | | | | [place] | [place] | | | | | [address] | [address] | | | | | [phone] | [phone] | | | | | | | | +--------+ + + + [...] | + +--------+ + + + | ECHO INTERPRETATION | Routin | 07/10/2018 | | Results for this | | OF OUTSIDE FILMS | e | 1:42 PM | | procedure are in the | | | | PDT | | results section. | + +--------+ + + + documented in this encounter Results ECHO Interpretation of Outside Films (07/10/2018 1:42 PM PDT) + + | Specimen | + + | | + + + + + | Impressions | Performed At | + + + | 1. The left ventricle is normal in size, wall thickness and systolic | | | function EF 55-60%. 2. The right ventricle is normal in size and | | | function. 3. Mild tricuspid regurgitation with no pulmonary | | | hypertension. 4. There is no pericardial effusion. | | + + + + + + | Narrative | Performed At | + + + | Patient Name: Freddie Caraballo Date of : 1975 | | | Performing Physician: Seferino Hamlin | | | | | | INDICATIONS CHEST PAIN CONCLUSIONS 1. | | | The left ventricle is normal in size, wall thickness and systolic | | | function EF 55-60%. 2. The right ventricle is normal in size and | | | function. 3. Mild tricuspid regurgitation with no pulmonary | | | hypertension. 4. There is no pericardial effusion. FINDINGS | | | -------- ECG rhythm: Sinus rhythm. Study: A 2-dimensional | | | transthoracic echocardiogram with m-mode, spectral and color flow | | | Doppler was perfomed. Study: This was a technically adequate study. | | | Left Ventricle: Overall left ventricular systolic function is normal | | | with, an EF between 55 - 60 %. Left Ventricle: The left ventricle | | | cavity size is normal. Left Ventricle: Left ventricular wall | | | thickness is normal. Left Ventricle: The diastolic filling pattern is | | | normal for the age of the patient. Right Ventricle: The right | | | ventricle is normal in size and function. Left Atrium: The left | | | atrium is normal in size. Right Atrium: The right atrium is normal in | | | size. Aortic Valve: The aortic valve is trileaflet, and appears | | | anatomically normal. No aortic stenosis or regurgitation. Mitral | | | Valve: Normal appearing mitral valve. Mitral Valve: There is trace | | | mitral regurgitation. Tricuspid Valve: The tricuspid valve appears | | | structurally normal. Tricuspid Valve: Mild tricuspid regurgitation | | | present. Tricuspid Valve: There is no evidence of pulmonary | | | hypertension. Tricuspid Valve: The right ventricular systolic | | | pressure (pulmonary artery systolic pressure), as measured by Doppler, | | | is 21.62mmHg. Pulmonic Valve: The pulmonic valve was not well | | | visualized. Pericardium: There is no pericardial effusion. | | | Pericardium: No pleural effusion seen. IVC/Hepatic Veins: The | | | inferior vena cava is normal in size and collapses > 50 % with sniff, | | | indicating normal central venous pressures. Aorta: The aortic root, | | | ascending aorta and aortic arch are normal. MEASUREMENTS | | | Ao asc: 2.91 cm Ao sinus: 3.[address] junct: | | | 3.01 cm IVC: 1.90 cm LA Diam: 3.41 cm EDV(Teich): 93.58 | | | ml IVSd: 0.86 cm LVIDd: 4.52 cm LVPWd: 0.79 cm LVOT | | | Area: 3.83 cm2 LVOT Diam: 2.21 cm %FS: 39.06 % EF(Teich): | | | 69.62 % ESV(Teich): 28.43 ml LVIDs: 2.75 cm SV(Teich): | | | 65.15 ml RVIDd: 2.68 cm LVEF MOD A2C: 62.47 % SV MOD A2C: | | | 56.25 ml LVEF MOD A4C: 53.54 % SV MOD A4C: 63.32 ml EF | | | Biplane: 58.10 % LVEDV MOD BP: 104.99 ml LVESV MOD BP: | | | 43.98 ml LVEDV MOD A2C: 90.03 ml LVLd A2C: 8.79 cm LVEDV MOD | | | A4C: 118.26 ml LVLd A4C: 9.25 cm LVESV MOD A2C: 33.78 ml | | | LVLs A2C: 7.51 cm LVESV MOD A4C: 54.93 ml LVLs A4C: 7.18 cm | | | LAESV(A-L): 41.36 ml LAESV Index (A-L): 18.97 ml/m2 LAAs | | | A2C: 15.74 cm2 LAESV A-L A2C: 43.75 ml LALs A2C: 4.80 cm | | | LAAs A4C: 14.88 cm2 LAESV A-L A4C: 38.70 ml LALs A4C: 4.85 | | | cm RAAs: 14.68 cm2 RAESV A-L: 41.32 ml RAESV MOD: 40.26 ml | | | RALs: 4.42 cm TAPSE: 2.10 cm AV maxP.17 mmHg AV | | | meanP.20 mmHg AV Vmax: 1.02 m/s AV Vmean: 0.69 m/s AV | | | VTI: 20.43 cm CHAUNCEY Vmax: 3.34 cm2 CHAUNCEY (VTI): 3.34 cm2 AVAI | | | (Vmax): 0.00 cm2/m2 AVAI (VTI): 0.00 cm2/m2 LVOT maxPG: | | | 3.17 mmHg LVOT meanP.63 mmHg LVSI Dopp: 31.36 ml/m2 LVSV | | | Dopp: 68.38 ml LVOT Vmax: 0.89 m/s LVOT Vmean: 0.60 m/s | | | LVOT VTI: 17.81 cm MV A Santosh: 0.48 m/s MV Dec Glenn: 5.06 | | | m/s2 MV DecT: 162.44 ms MV E Santosh: 0.82 m/s MV E/A Ratio: | | | 1.70 MV PHT: 47.11 ms MVA By PHT: 4.66 cm2 Septal e': 0.10 | | | m/s Septal E/e': 7.87 Lateral e': 0.11 m/s Lateral E/e': | | | 6.91 RAP: 5 mmHg RVSP: 21.62 mmHg TR maxP.62 mmHg TR | | | Vmax: 2.03 m/s Hand Packer/Packager: [email or web address] Authenticated by: Seferion | | | [facility] Report Date/Time: 07-11-2018 19:27:7 | | + + + + + | Procedure Note | + + | Jake, Anuj Conversion - 05/08/2019 2:58 PM PDT Patient Name: Bo Caraballo | | : 1975 Performing Physician: Seferino | | [place] INDICATIONS------ | | -----CHEST PAIN CONCLUSIONS 1. The left ventricle is normal in size, wall | | thickness and systolic function EF 55-60%.2. The right ventricle is normal in size and | | function.3. Mild tricuspid regurgitation with no pulmonary hypertension.4. There is no | | pericardial effusion. FINDINGS--------ECG rhythm: Sinus rhythm.Study: A 2-dimensional | | transthoracic echocardiogram with m-mode, spectral and color flow Doppler was | | perfomed.Study: This was a technically adequate study.Left Ventricle: Overall left | | ventricular systolic function is normal with, an EF between 55 - 60 %.Left Ventricle: | | The left ventricle cavity size is normal.Left Ventricle: Left ventricular wall thickness | | is normal.Left Ventricle: The diastolic filling pattern is normal for the age of the | | patient.Right Ventricle: The right ventricle is normal in size and function.Left Atrium: | | The left atrium is normal in size.Right Atrium: The right atrium is normal in | | size.Aortic Valve: The aortic valve is trileaflet, and appears anatomically normal. No | | aortic stenosis or regurgitation.Mitral Valve: Normal appearing mitral valve.Mitral | | Valve: There is trace mitral regurgitation.Tricuspid Valve: The tricuspid valve appears | | structurally normal.Tricuspid Valve: Mild tricuspid regurgitation present.Tricuspid | | Valve: There is no evidence of pulmonary hypertension.Tricuspid Valve: The right | | ventricular systolic pressure (pulmonary artery systolic pressure), as measured by | | Doppler, is 21.62mmHg.Pulmonic Valve: The pulmonic valve was not well | | visualized.Pericardium: There is no pericardial effusion.Pericardium: No pleural | | effusion seen.IVC/Hepatic Veins: The inferior vena cava is normal in size and collapses | | > 50 % with sniff, indicating normal central venous pressures.Aorta: The aortic root, | | ascending aorta and aortic arch are normal. MEASUREMENTS Ao asc: 2.91 cmAo | | sinus: 3.[address] junct: 3.01 cmIVC: 1.90 cmLA Diam: 3.41 cmEDV(Teich): | | 93.58 mlIVSd: 0.86 cmLVIDd: 4.52 cmLVPWd: 0.79 cmLVOT Area: 3.83 [id number] Diam: | | 2.21 cm%FS: 39.06 %EF(Teich): 69.62 %ESV(Teich): 28.43 mlLVIDs: 2.75 | | cmSV(Teich): 65.15 mlRVIDd: 2.68 cmLVEF MOD A2C: 62.47 %SV MOD A2C: 56.25 mlLVEF | | MOD A4C: 53.54 %SV MOD A4C: 63.32 mlEF Biplane: 58.10 %LVEDV MOD BP: 104.99 | | mlLVESV MOD BP: 43.98 mlLVEDV MOD A2C: 90.03 mlLVLd A2C: 8.79 cmLVEDV MOD A4C: | | 118.26 mlLVLd A4C: 9.25 cmLVESV MOD A2C: 33.78 mlLVLs A2C: 7.51 cmLVESV MOD A4C: | | 54.93 mlLVLs A4C: 7.18 cmLAESV(A-L): 41.36 mlLAESV Index (A-L): 18.97 ml/m2LAAs | | A2C: 15.74 [id number] A-L A2C: 43.75 mlLALs A2C: 4.80 cmLAAs A4C: 14.88 [id number] | | A-L A4C: 38.70 mlLALs A4C: 4.85 cmRAAs: 14.68 [id number] A-L: 41.32 mlRAESV MOD: | | 40.26 mlRALs: 4.42 cmTAPSE: 2.10 cmAV maxP.17 mmHgAV meanP.20 mmHgAV | | Vmax: 1.02 m/Xenia Vmean: 0.69 m/Xenia VTI: 20.43 cmAVA Vmax: 3.34 cm2AVA (VTI): | | 3.34 [id number] (Vmax): 0.00 cm2/m2AVAI (VTI): 0.00 cm2/m2LVOT maxP.17 mmHgLVOT | | meanP.63 mmHgLVSI Dopp: 31.36 ml/m2LVSV Dopp: 68.38 mlLVOT Vmax: 0.89 | | m/sLVOT Vmean: 0.60 m/sLVOT VTI: 17.81 cmMV A Santosh: 0.48 m/sMV Dec Glenn: 5.06 | | m/s2MV DecT: 162.44 msMV E Santosh: 0.82 m/sMV E/A Ratio: 1.70MV PHT: 47.11 msMVA By | | PHT: 4.66 [id number] e': 0.10 m/sSeptal E/e': 7.87Lateral e': 0.11 m/sLateral | | E/e': 6.91RAP: 5 mmHgRVSP: 21.62 mmHgTR maxP.62 mmHgTR Vmax: 2.03 m/s | | Hand Packer/Packager: [email or web address] by: Seferino Sullivanort Date/Time: 07-11-2018 19:27:7 | | IMPRESSION: 1. The left ventricle is normal in size, wall thickness and systolic | | function EF 55-60%.2. The right ventricle is normal in size and function.3. Mild | | tricuspid regurgitation with no pulmonary hypertension.4. There is no pericardial | | effusion. | |Ao st junct: 3.01 cm | |IVC: 1.90 cm | |LA Diam: 3.41 cm | |EDV(Teich): 93.58 ml | |IVSd: 0.86 cm | |LVIDd: 4.52 cm | |LVPWd: 0.79 cm | |LVOT Area: 3.83 cm2 | |LVOT Diam: 2.21 cm | |%FS: 39.06 % | |EF(Teich): 69.62 % | |ESV(Teich): 28.43 ml | |LVIDs: 2.75 cm | |SV(Teich): 65.15 ml | |RVIDd: 2.68 cm | |LVEF MOD A2C: 62.47 % | |SV MOD A2C: 56.25 ml | |LVEF MOD A4C: 53.54 % | |SV MOD A4C: 63.32 ml | |EF Biplane: 58.10 % | |LVEDV MOD BP: 104.99 ml | |LVESV MOD BP: 43.98 ml | |LVEDV MOD A2C: 90.03 ml | |LVLd A2C: 8.79 cm | |LVEDV MOD A4C: 118.26 ml | |LVLd A4C: 9.25 cm | |LVESV MOD A2C: 33.78 ml | |LVLs A2C: 7.51 cm | |LVESV MOD A4C: 54.93 ml | |LVLs A4C: 7.18 cm | |LAESV(A-L): 41.36 ml | |LAESV Index (A-L): 18.97 ml/m2 | |LAAs A2C: 15.74 cm2 | |LAESV A-L A2C: 43.75 ml | |LALs A2C: 4.80 cm | |LAAs A4C: 14.88 cm2 | |LAESV A-L A4C: 38.70 ml | |LALs A4C: 4.85 cm | |RAAs: 14.68 cm2 | |RAESV A-L: 41.32 ml | |RAESV MOD: 40.26 ml | |RALs: 4.42 cm | |TAPSE: 2.10 cm | |AV maxP.17 mmHg | |AV meanP.20 mmHg | |AV Vmax: 1.02 m/s | |AV Vmean: 0.69 m/s | |AV VTI: 20.43 cm | |CHAUNCEY Vmax: 3.34 cm2 | |CHAUNCEY (VTI): 3.34 cm2 | |AVAI (Vmax): 0.00 cm2/m2 | |AVAI (VTI): 0.00 cm2/m2 | |LVOT maxP.17 mmHg | |LVOT meanP.63 mmHg | |LVSI Dopp: 31.36 ml/m2 | |LVSV Dopp: 68.38 ml | |LVOT Vmax: 0.89 m/s | |LVOT Vmean: 0.60 m/s | |LVOT VTI: 17.81 cm | |MV A Santosh: 0.48 m/s | |MV Dec Glenn: 5.06 m/s2 | |MV DecT: 162.44 ms | |MV E Santosh: 0.82 m/s | |MV E/A Ratio: 1.70 | |MV PHT: 47.11 ms | |MVA By PHT: 4.66 cm2 | |Septal e': 0.10 m/s | |Septal E/e': 7.87 | |Lateral e': 0.11 m/s | |Lateral E/e': 6.91 | |RAP: 5 mmHg | |RVSP: 21.62 mmHg | |TR maxP.62 mmHg | |TR Vmax: 2.03 m/s | | | |Hand Packer/Packager: DBS | |Authenticated by: Seferino Hamlin | |Report Date/Time: 07-11-2018 19:27:7 | | | |IMPRESSION: | |1. The left ventricle is normal in size, wall thickness and systolic function EF 55-60%. | |2. The right ventricle is normal in size and function. | |3. Mild tricuspid regurgitation with no pulmonary hypertension. | |4. There is no pericardial effusion. | + + documented in this encounter Visit Diagnoses Not on filedocumented in this encounter"
--- OUTSIDE RECORDS SUMMARY | ~2020-05-26 | XMS | Encounter Summary ---
Demographics + + + | Address | [address] | | | [place] [address] | + + + | Home Phone | | + + + | Preferred Language | Unknown | + + + | Marital Status | Single | + + + | Scientologist Affiliation | Unknown | + + + | Race | White | + + + | Ethnic Group | Not or | + + + Author + + + | Author | [facility] | | | and [place] | + + + | Organization | [facility] | | | [...] Providers + +------+ + | Care Manager Body Name | Role | Phone | + +------+ + PCP | Unavailable | + +------+ + Encounter Details +--------+ + + + + | Date | Type | Department | Care Team | Description | +--------+ + + + + | 03/07/ | Emergency | [facility] | Pasha Pillai | Pain in soft tissues | | 2001 | | [facility] | MD Chloé [address] | of limb | | | | EMERGENCY CENTER | [place] | | | | | [address] | [address] | | | | | [place] | [phone] | | | | | [address] | | | | | | [phone] | | | +--------+ + + + [...] + | Diagnosis | + + | Pain in soft tissues of limb Pain in limb | + + documented in this encounter"
--- OUTSIDE RECORDS SUMMARY | ~2020-05-26 | XMS | Encounter Summary ---
Demographics + + + | Address | [address] | | | [place] [address] | + + + | Home Phone | | + + + | Preferred Language | Unknown | + + + | Marital Status | Single | + + + | Voodoo Affiliation | Unknown | + + + | Race | White | + + + | Ethnic Group | Not or | + + + Author + + + | Author | [facility] | | | and [place] | + + + | Organization | [facility] | | | [...] Team Providers + +------+ + | Care Second Mate Name | Role | Phone | + +------+ + PCP | Unavailable | + +------+ + Encounter Details +--------+ + + + + | Date | Type | Department | Care Team | Description | +--------+ + + + + | 05/27/ | Hospital | [facility] | Conversion | Unspecified disorder | | 2000 | Encounter | CONVERSION [address] | Transaction, | of the teeth and | | | | [address] | Provider Unknown | supporting | | | | [place] | [phone] | structures | | | | [address] | | | | | | [phone] | | | +--------+ + + + [...] + | Diagnosis | + + | Unspecified disorder of the teeth and supporting structures | + + documented in this encounter"
--- OUTSIDE RECORDS SUMMARY | ~2020-05-26 | XMS | Encounter Summary ---
Demographics + + + | Address | [address] | | | [place] [address] | + + + | Home Phone | | + + + | Preferred Language | Unknown | + + + | Marital Status | Single | + + + | Sikh Affiliation | Unknown | + + + [...] Team Providers + +------+ + | Care Receiving Associate Store Name | Role | Phone | + +------+ + PCP | Unavailable | + +------+ + Encounter Details +--------+ + + + + | Date | Type | Department | Care Team | Description | +--------+ + + + + | 09/04/ | Hospital | [facility] | | | | 2001 | Encounter | [address]VERSION [address] | | | | [address] | | | | | | [place] | | | | | | [address] | | | | | | [phone] | | | +--------+ + + + [...]
--- OUTSIDE RECORDS SUMMARY | ~2020-05-26 | XMS | Encounter Summary ---
Demographics + + + | Address | [address] | | | [place] [address] | + + + | Home Phone | | + + + | Preferred Language | Unknown | + + + | Marital Status | Single | + + + | Sabianist Affiliation | Unknown | + + + | Race | White | + + + | Ethnic Group | Not or | + + + Author + + + | Author | [facility] | | | and [place] | + + + | Organization | [facility] | | | and [...] Team Providers + +------+ + | Care Director Of Development And Marketing Name | Role | Phone | + +------+ + | Hina Kim | PCP | | | PA-C | | | + +------+ + Encounter Details +--------+ + + + + | Date | Type | Department | Care Team | Description | +--------+ + + + + | 05/14/ | Imaging | [facility] | Provider, | | | 2019 | Exam | [facility] | Historical, MD [address] | | | | | IMAGING [address] | | | | | [address] | [place] [address] | | | | | [place] [address] | | | | | | [phone] | | | +--------+ + + + [...] +--------+ + + + | XR KNEE RIGHT 1 - 2 | Routin | 09/07/2018 | | Results for this | | VW | e | 12:05 AM | | procedure are in the | | | | PST | | results section. | + +--------+ + + + documented in this encounter Results XR Knee Right 1 - 2 Vw (09/07/2018 12:05 AM PST) + + | Specimen | [...]
== END 2020-05-26 13:58 | disposition home or self-care (01) ==
LOC: ED 12:46
DX: T63.441A Toxic effect of venom of bees, accidental (unintentional), initial encounter (principal); K21.9 Gastro-esophageal reflux disease without esophagitis; F17.200 Nicotine dependence, unspecified, uncomplicated; Z79.899 Other long term (current) drug therapy
CPT/HCPCS: 99282

== ENCOUNTER 2021-02-15 16:30 | Emergency (ER) | payer OTHER ==
[~2021-02-15] VITALS: Ht 180.3 cm; Wt 110.7 kg
[2021-02-15] MEDS ORDERED: VENTOLIN HFA18 GM (19:22)
[2021-02-15] MEDS ORDERED: FLUOXETINE HCL20 MG (19:23)
[2021-02-15] MEDS ORDERED: FLUTICASONE PRO16 GM (19:23)
== END 2021-02-16 00:37 | disposition home or self-care (01) ==
LOC: ED 16:30
DX: R10.33 Periumbilical pain (principal); R10.10 Upper abdominal pain, unspecified; K21.9 Gastro-esophageal reflux disease without esophagitis; Z79.899 Other long term (current) drug therapy
CPT/HCPCS: 74177; 80053; 81001; 83690; 85025; 99284-25; J7030; Q9967

== ENCOUNTER 2021-08-29 21:09 | Emergency (ER) | payer OTHER ==
[~2021-08-29] VITALS: Ht 180.3 cm; Wt 110.7 kg
[~2021-08-29 21:09] MED LIST changes: +FLUOXETINE HCL20 MG; +FLUTICASONE PRO16 GM; +VENTOLIN HFA18 GM
== END 2021-08-30 00:45 | disposition home or self-care (01) ==
LOC: ED 21:09
DX: S93.602A Unspecified sprain of left foot, initial encounter (principal); X50.1XXA Overexertion from prolonged static or awkward postures, initial encounter; K21.9 Gastro-esophageal reflux disease without esophagitis; F17.200 Nicotine dependence, unspecified, uncomplicated; Z79.899 Other long term (current) drug therapy
CPT/HCPCS: 73630; 99283-25

== ENCOUNTER 2022-01-10 06:03 | Emergency (ER) | payer OTHER ==
[~2022-01-10] VITALS: Ht 180.3 cm; Wt 99.8 kg
[2022-01-10] MEDS ORDERED: ROBITUSSIN COU237 M2 PO (07:48)
[2022-01-10] MEDS ORDERED: DOXYCYCLINE HY100 MG PO (07:48)
[2022-01-10] MEDS ORDERED: PREDNISONE20 MG PO (07:48)
[2022-01-10] MEDS ORDERED: PROVENTIL HFA6.7 GM INH (07:48)
--- NOTE | 2022-01-11 19:09 | EKG ---
[facility] [address] [facility] [place], [place] [address] Signed Normal sinus rhythm Normal ECG No previous ECGs available Confirmed by SIRIA RUSSELL MD ([id number]) on 01/11/2022 7:09:16 PM Electronically Signed By: SIRIA RUSSELL MD 01/11/22 1909 PATIENT NAME: CAROLE QUINTANA Electrocardiogram DATE OF : [birth year] PHYSICIAN: SIRIA RUSSELL MD REPORT #: [id number] REPORT IS CONFIDENTIAL AND NOT TO BE RELEASED WITHOUT AUTHORIZATION
== END 2022-01-10 10:16 | disposition home or self-care (01) ==
LOC: ED 06:03
DX: R06.02 Shortness of breath (principal); K21.9 Gastro-esophageal reflux disease without esophagitis; F17.200 Nicotine dependence, unspecified, uncomplicated; Z79.899 Other long term (current) drug therapy; Z20.822 Contact with and (suspected) exposure to COVID-19
CPT/HCPCS: 36415; 36600; 71045; 80053; 82803; 83880; 84484; 85025; 85379; 93005; 93010; 94640; 96374; 99285-25; J2930; U0003

== ENCOUNTER 2022-02-10 08:44 | Day surgery (SDC) | payer OTHER ==
[~2022-02-10] VITALS: Ht 180.3 cm; Wt 100.4 kg
[~2022-02-10 08:44] MED LIST changes: +DOXYCYCLINE HY100 MG PO; +PREDNISONE20 MG PO; +ROBITUSSIN COU237 M2 PO
--- NOTE | 2022-02-10 11:52 | NUR ---
LE 1045: PATIENT PUSHES HIS CALL LIGHT AND REPORTS "I JUST ROLLED OVER AND NOW MY IV HURTS." IV WINDOW DRESSING IS NOTED TO BE ROLLED UP. DRESSING REMOVED AND IV CATHETER IS BENT AT THE HUB. CATHETER IS STRAIGHTENED OUT AND NEW DRESSING IS APPLIED. IV IS RUNNING WIDE OPEN WELL. IV SLOWED TO TKO. CALL LIGHT REMAINS WITHIN REACH.
--- NOTE | 2022-02-10 12:42 | NUR ---
02/10/22 1242 Stefanie Abraham 1235-PT TO PACU IN LL POSITION. AWAKE AND ALERT. PT DENIES PAIN NAUSEA AND DIZZINES. BREATHING EASY AND UNLABORED. SPO2 >95% ON 3 L O2 VIA NC. PT ENCOURAGED TO PASS GAS. 1242- PT REMAINS AWAKE. PASSING GAS. SPO2 >95% . O2 TITRATED DOWN TO ROOM AIR.
--- NOTE | 2022-02-13 12:13 | OR ---
[facility] [address] [place], [place] [address] Signed DATE OF OPERATION: 02/10/2022 SURGEON: Adalgisa Peres MD PREOPERATIVE DIAGNOSES: 1. Persistent epigastric pain, particularly following meals, mild dysphagia. 2. History of polyps of colon in 2020. POSTOPERATIVE DIAGNOSES: 1. Hiatal hernia without obvious esophagitis or gastritis. 2. Multiple polyps of colon (excised). PROCEDURES: 1. Esophagogastroduodenoscopy with biopsy. 2. Total colonoscopy to cecum with cold snare polypectomy x2, cold morcellation polypectomy x3. ANESTHESIA: Intravenous sedation, fentanyl 150 mcg and Versed 8 mg, total. INDICATIONS: This 46-year-old white man is a patient of Yimi Kim and known to me from the past. He has had persistent epigastric pain, but not symptoms typical of biliary colic. He is on PPI medication, omeprazole. He has mild dysphagia from time to time. He feels as though the food is "passing through" in the area in question. He is admitted to undergo upper endoscopy on that basis. The patient also underwent colonoscopy in 2019, at which time he had several hyperplastic polyps. Surveillance colonoscopy concurrent to the upper endoscopy is recommended on that basis. He has no diarrhea or constipation currently. FINDINGS: Upper endoscopy showed a poor flap valve consistent with hiatal hernia, but no actual esophagitis per se. There was no evidence of Vuong's. The stomach and duodenum were essentially normal. CLOtest was negative. Colonoscopy showed a well prepped bowel. Complete colonoscopy was undertaken to the cecum without question. He had a cluster of small polyps that were hyperplastic in the rectosigmoid and another at the proximal descending colon, which was likely adenomatous and one in the sigmoid almost certainly adenomatous. Two other small polyps were Electronically Signed By: ADALGISA PERES MD 02/13/22 1213 PATIENT NAME: CAROLE QUINTANA OPERATIVE REPORT DATE OF : [birth year] REPORT #: [id number] PHYSICIAN: ADALGISA PERES MD PCP: YIMI KIM PA-C REPORT IS CONFIDENTIAL AND NOT TO BE RELEASED WITHOUT AUTHORIZATION [facility] [address] [place], [place] [address] Signed excised with it. DESCRIPTION OF PROCEDURE: The patient was brought to the endoscopy suite and placed in the lateral decubitus position given intravenous sedation after topical hypopharyngeal lidocaine anesthesia administration. A bite block was placed. An Olympus video upper endoscope was passed into the hypopharynx. The vocal cords appeared normal, scope was advanced to the esophagus, throughout its length, it was essentially normal, certainly no Vuong epithelium or stricture. The scope was advanced to the stomach, which was insufflated with air. There was no evidence of bile. No sign of polyp, erosion, or other problem. The scope was passed through the normal-appearing pylorus into the duodenum, which was normal. Biopsies were taken there to assess for celiac disease. The scope was withdrawn. A biopsy was then taken of the antrum for both MILLICENT and pathologic testing. Retroflexed view was undertaken showing a very poor flap valve with easy effacement of the barrier at the GE junction. The scope was straightened and withdrawn. A biopsy was then taken of the distal esophageal mucosa, which actually looked quite normal and certainly without sign of Vuong epithelium. Further withdrawal of scope allowed for biopsy of the mid esophagus. The scope was then removed. Plans made for colonoscopy. Additional sedation was given and digital rectal examination performed showing no anorectal abnormality other than external hemorrhoidal change. An Olympus video colonoscope was passed into the rectum and manipulated throughout the colon ultimately intubating the cecum itself. The ileocecal valve and appendiceal orifice were normal. Scope was withdrawn from that point and examination throughout showed normal-appearing colon until the proximal descending colon, where a somewhat linear sessile polyp was noted, this was excised with cold snare technique completely. The specimen was passed for pathology. Further withdrawal of scope showed a sigmoid polyp at approximately 20 cm, which was excised with cold snare technique as well. Withdrawal to the rectosigmoid showed multiple small probably hyperplastic polyps, these were excised with cold morcellation technique. Retroflexed view of the rectum was normal, the scope was removed. The patient was taken to the recovery room in good condition. CONCLUDING DIAGNOSIS: Hiatal hernia without obvious esophagitis, uncertain as to source of the epigastric pain. PLAN: 1. Recommend at this point continued use of PPI, omeprazole. 2. Polyps of colon. Some of these polyps were hyperplastic, but others were likely adenomatous. We would recommend repeat colonoscopy in three years based on that. 3. He will return to see me in approximately 4-6 weeks and we will review his pathology reports and his clinical symptoms at that point. Electronically Signed By: ADALGISA PERES MD 02/13/22 1213 PATIENT NAME: CAROLE QUINTANA OPERATIVE REPORT DATE OF : [birth year] REPORT #: [id number] PHYSICIAN: ADALGISA PERES MD PCP: YIMI KIM PA-C REPORT IS CONFIDENTIAL AND NOT TO BE RELEASED WITHOUT AUTHORIZATION [address] [address] Signed MD DONITA Max/MODL /[id number] cc: CHRIS Diallo Copies: ~ Electronically Signed By: ADALGISA PERES MD 02/13/22 1213 PATIENT NAME: SIVACAROLE MARINO FAWN OPERATIVE REPORT DATE OF : [birth year] REPORT #: [id number] PHYSICIAN: ADALGISA PERES MD PCP: YIMI KIM PA-C REPORT IS CONFIDENTIAL AND NOT TO BE RELEASED WITHOUT AUTHORIZATION
--- NOTE | 2022-02-14 12:43 | PATH ---
[facility] [address] [place], [place] [address] Signed SPECIMEN(S): A DUODENAL BIOPSY SPECIMEN(S): B ANTRUM BIOPSY SPECIMEN(S): C DISTAL ESOPHAGEAL BIOPSY SPECIMEN(S): D MID ESOPIHAGEAL BIOPSY SPECIMEN(S): E PROXIMAL DESCENDING/LEFT COLON POLYP SPECIMEN(S): F COLON POLYP AT 20 CM SPECIMEN(S): G COLON POLYP AT 15 CM SPECIMEN SOURCE: A. DUODENAL BIOPSY B. ANTRUM BIOPSY C. DISTAL ESOPHAGEAL BIOPSY D. MID ESOPIHAGEAL BIOPSY E. PROXIMAL DESCENDING/LEFT COLON POLYP F. COLON POLYP AT 20 CM G. COLON POLYP AT 15 CM CLINICAL HISTORY: Esophagogastroduodenoscopy. Epigastric pain, history of polyps/hiatal hernia, otherwise normal. Multiple polyps. FINAL PATHOLOGIC DIAGNOSIS: A. Duodenum, biopsy: - Duodenal mucosa with no histopathologic abnormality. - Negative for increased intraepithelial lymphocytes or villous blunting. - Negative for dysplasia or malignancy. B. Stomach, antrum, biopsy: - Antral mucosa with no histopathologic abnormality. - Negative for Helicobacter organisms on HE stain. - Negative for dysplasia or malignancy. C. Esophagus, distal, biopsy: - Squamous mucosa with no histopathologic abnormality. - Negative for intestinal metaplasia, dysplasia, or malignancy. D. Esophagus, mid, biopsy: - Squamous mucosa with mild chronic inflammation and reactive changes. - Negative for increased intraepithelial eosinophils. - Negative for intestinal metaplasia, dysplasia, or malignancy. E. Colon, proximal descending/left, polyp, polypectomy: - Fragment of sessile serrated lesion. - Negative for dysplasia or malignancy. F. Colon, polyp at 20 cm, polypectomy: PATIENT NAME: CAROLE QUINTANA PATHOLOGY DATE OF : 77 REPORT #: [id number] PHYSICIAN: MARYJO FUNEZ PCP: YIMI GRUBER PA-C REPORT IS CONFIDENTIAL AND NOT TO BE RELEASED WITHOUT AUTHORIZATION [facility] [address] [place], [place] [address] Signed - Hyperplastic polyp. - Negative for dysplasia or malignancy. G. Colon, polyp at 15 cm, polypectomy: - Fragments of hyperplastic polyp. - Negative for dysplasia or malignancy. NAL:cml:C2NR MICROSCOPIC EXAMINATION: Histologic sections of all submitted blocks are examined by light microscopy. These findings, together with the gross examination, support the pathologic diagnosis. GROSS DESCRIPTION: Seven specimens are received in seven containers, labeled "TC." A. The specimen, labeled "TC, 1," and designated on the requisition "duodenum," is received in formalin and consists of two phelps soft tissue fragments that measure 0.2-0.3 cm in greatest dimension. The specimen is entirely submitted in cassette (A1). B. The specimen, labeled "TC, 2," and designated on the requisition "antrum," is received in formalin and consists of two phelps soft tissue fragments that measure 0.2-0.3 cm in greatest dimension. The specimen is entirely submitted in cassette (B1). C. The specimen, labeled "TC, 3," and designated on the requisition "distal esophageal," is received in formalin and consists of two phelps soft tissue fragments that measure 0.3-0.4 cm in greatest dimension. The specimen is entirely submitted in cassette (C1). D. The specimen, labeled "TC, 4," and designated on the requisition "mid esophagus," is received in formalin and consists of one phelps soft tissue fragment that measures 0.4 cm in greatest dimension. The specimen is entirely submitted in cassette (D1). E. The specimen, labeled "TC, 5," and designated on the requisition "proximal descending/left colon polyp," is received in formalin and consists of three phelps soft tissue fragments that measure 0.4-0.7 cm in greatest dimension. The specimen is entirely submitted in cassette (E1). F. The specimen, labeled "TC, 6," and designated on the requisition "colon polyp at 20 cm," is received in formalin and consists of one polypoid, phelps soft tissue fragment that measures 0.4 cm in greatest dimension. The specimen is entirely submitted in cassette (F1). PATIENT NAME: CAROLE QUINTANA PATHOLOGY DATE OF : [birth year] REPORT #: [id number] PHYSICIAN: MARYJO FUNEZ PCP: YIMI GRUBER PA-C REPORT IS CONFIDENTIAL AND NOT TO BE RELEASED WITHOUT AUTHORIZATION [facility] [address] [place], [place] [address] Signed G. The specimen, labeled "TC, 7," and designated on the requisition "colon polyp at 15 cm," is received in formalin and consists of four phelps soft tissue fragments that measure 0.3 cm in greatest dimension. The specimen is entirely submitted in cassette (G1). AT (under the direct supervision of a pathologist) The Gross Description was prepared using a voice recognition system. The report was reviewed for accuracy; however, sound-alike word errors, addition and/or deletions may occur. If there is any question about this report, please contact Client Services. PERFORMING LABORATORY: The technical component was performed by [facility], [address] [place] [id number] (CLIA# [id number]). [facility], [address] [place] [address] (CLIA# [id number]). Diagnostician: Maryana Abel MD Pathologist Electronically Signed 02/14/2022 Copies: ~ PATIENT NAME: CAROLE QUINTANA PATHOLOGY DATE OF : [birth year] REPORT #: [id number] PHYSICIAN: MARYJO FUNEZ PCP: YIMI GRUBER PA-C REPORT IS CONFIDENTIAL AND NOT TO BE RELEASED WITHOUT AUTHORIZATION
== END 2022-02-10 13:05 | disposition home or self-care (01) ==
LOC: OPS 08:44 → DS 08:47 → OPS 13:05
PROVIDERS: ATTEND Surgery
PROC: 0DB58ZX Excision of Esophagus, Via Natural or Artificial Opening Endoscopic, Diagnostic (ICD-10-PCS; 2022-02-10)
PROC: 0DBM8ZX Excision of Descending Colon, Via Natural or Artificial Opening Endoscopic, Diagnostic (ICD-10-PCS; 2022-02-10)
PROC: 0DBN8ZX Excision of Sigmoid Colon, Via Natural or Artificial Opening Endoscopic, Diagnostic (ICD-10-PCS; 2022-02-10)
PROC: 0DB98ZX Excision of Duodenum, Via Natural or Artificial Opening Endoscopic, Diagnostic (ICD-10-PCS; principal; 2022-02-10 12:00)
PROC: 0DB68ZX Excision of Stomach, Via Natural or Artificial Opening Endoscopic, Diagnostic (ICD-10-PCS; 2022-02-10 12:00)
DX: Z12.11 Encounter for screening for malignant neoplasm of colon (principal); D12.4 Benign neoplasm of descending colon; K21.00 Gastro-esophageal reflux disease with esophagitis, without bleeding; K44.9 Diaphragmatic hernia without obstruction or gangrene; Z86.16 Personal history of COVID-19
CPT/HCPCS: 99153; G0500; J2250; J3010; J7121

== ENCOUNTER 2022-06-05 17:41 | Emergency (ER) | payer OTHER ==
[~2022-06-05] VITALS: Ht 180.3 cm; Wt 102.1 kg
[2022-06-05] MEDS ORDERED: DOXYCYCLINE HY100 MG PO (20:31)
== END 2022-06-05 20:47 | disposition home or self-care (01) ==
LOC: ED 17:41
DX: N45.1 Epididymitis (principal); K21.9 Gastro-esophageal reflux disease without esophagitis; M17.0 Bilateral primary osteoarthritis of knee; Z79.899 Other long term (current) drug therapy
CPT/HCPCS: 76870; 81001; 99284-25; A9270

== ENCOUNTER 2022-07-24 06:50 | Day surgery (SDC) | payer OTHER ==
[~2022-07-24] VITALS: Ht 177.8 cm; Wt 104.5 kg
[2022-07-24] MEDS ORDERED: FLOVENT HFA10.6 GM INH (07:17)
[2022-07-24] MEDS ORDERED: HYDROCODON-ACE1 EA10 PO (09:43)
[2022-07-24] MEDS ORDERED: DICLOFENAC SODI75 MG PO (09:43)
--- NOTE | 2022-07-24 09:54 | NUR ---
07/24/22 0954 Vida Elise PT TO PACU SLEEPY, TRYING TO RUB NOSE WITH HIS HAND. O2 PLACED VIA NASAL CANNULA AT 3L. ICE PLACE TO RT KNEE,
--- NOTE | 2022-07-24 10:24 | NUR ---
PT ARRIVES BACK TO ROOM FROM PACU. RECIEVED REPORT FROM BASHIR HOLDER. PT REPORTS NO PAIN OR NAUSEA. DRESSING CLEAN, DRY AND INTACT. ICE PACK IN PLACE ON RIGHT KNEE. PT REQUESTS APPLE SAUCE AND WATER. IN ROOM WITH PATIENT AND CALL LIGHT WITHIN REACH.
--- NOTE | 2022-07-24 11:30 | NUR ---
PT LYING IN BED ON PHONE UPON ARRIVAL TO ROOM. PT AWAKE AND RESPONSIVE. PT REPORTS NO PAIN. PT WATER ON SIDE TABLE. PT STATES HE DOES NOT HAVE TO VOID. INFORMED PT HE MUST VOID BEFORE DISCHARGE. PT VERBALIZED UNDERSTANDING. PT DRESSING APPEARS INTACT AND NO DRAINAGE. PT STATES HE WILL ATTEMPT TO VOID SOON. CALL LIGHT WITHIN REACH.
--- NOTE | 2022-07-24 11:48 | NUR ---
PT WOULD LIKE TO GET UP AND USE THE RESTROOM. HE IS ASSISTED UP OOB WITH STANDBY ASSIST. HE IS ABLE TO VOID 125MLS OF DARK YELLOW URINE. HE HAS MET ALL DC CRITERIA. HE IS EDUCATED ON HOW TO BEST DRESS HIMSELF AND TO OPEN HIS CURTAIN WHEN READY.
--- NOTE | 2022-07-24 12:08 | NUR ---
PT IS GIVEN VERBAL AND WRITTEN DC INSTRUCTIONS WITH PRESENT. THEY BOTH VERBALIZE UNDERSTANDING. PT IS TAKEN TO PERSONAL VEHICLE VIA WC, WHERE HE IS ABLE TO TRANSFER HIMSELF SAFELY WITHOUT ISSUES.
--- NOTE | 2022-07-24 16:24 | OR ---
[facility] [address] [place], [place] [address] Signed DATE OF OPERATION: 07/24/2022 SURGEON: Aby Elise MD PREOPERATIVE DIAGNOSIS: Chondromalacia patella, medial meniscus tear, right knee. POSTOPERATIVE DIAGNOSIS: Chondromalacia patella with no medial meniscus tear. PROCEDURE PERFORMED: Right knee arthroscopy, diagnostic. LEAD WEB APPLICATION DEVELOPER: Deedee Wilkerson PA-C. ANESTHESIA: General. BLOOD LOSS: Minimal. BRIEF HISTORY: Carole is a 46-year-old gentleman with pain and mechanical symptoms in his knee. He had undergone extensive nonoperative treatment including injections, bracing and physical therapy. Risks and benefits of operative treatment were discussed with him. He elected to proceed. PROCEDURE IN DETAIL: Once consent was obtained, he was taken to the operating room. After adequate anesthesia he was placed on operating room table, left leg was flexed, abducted and externally rotated on a well-padded leg arevalo. The right was placed in well-padded. Proximal thigh tourniquet placed in leg arevalo. The leg was then prepped and draped in a standard sterile fashion. Portal sites were injected with 0.25% Marcaine with epinephrine and a standard inferior lateral and superolateral portals were made. The scope was introduced in the knee. ARTHROSCOPIC FINDINGS: Patella was noted to track well with no significant lateral tightness. There was no tilt. There was minimal chondromalacia to the inferior pole. Medial and lateral facets Electronically Signed By: ABY ELISE MD 07/24/22 1624 PATIENT NAME: CAROLE QUINTANA OPERATIVE REPORT DATE OF : [birth year] REPORT #: [id number] PHYSICIAN: ABY ELISE MD PCP: YIMI GRUBER PA-C REPORT IS CONFIDENTIAL AND NOT TO BE RELEASED WITHOUT AUTHORIZATION [facility] [address] [place], [place] [address] Signed were intact. The trochlea was completely intact. Medial and lateral gutters were intact. Medial and lateral compartment showed grade 1 softening to the femur, particularly on the medial side. No significant chondral tears were noted. Both menisci were intact. The ACL and PCL were intact and took tension on appropriate drawer. DESCRIPTION OF OPERATION: Standard inferomedial portal was made after localizing using a spinal needle. Both compartments were palpated using the probe. Undersurface and superior surface of the menisci were carefully palpated with no defects noted. Chondral surfaces were similarly palpated with only general softening noted. The patella had some [id number] chondromalacia to the very inferior pole. Otherwise, it was intact. It was elected not to proceed with a lateral release because he had no significant tightness laterally. We then withdrew the scope and closed the portals using 3-0 nylon. The knee was injected with 60 mg Toradol at the end of the case. The wounds were then dressed with Adaptic, ABD, and Jorge wrap. He tolerated the procedure well. All sponge, needle, and instrument counts were correct. Aby Elise MD BA/MODL /[id number] Copies: ~ Electronically Signed By: ABY ELISE MD 07/24/22 1624 PATIENT NAME: CAROLE QUINTANA OPERATIVE REPORT DATE OF : [birth year] REPORT #: [id number] PHYSICIAN: ABY ELISE MD PCP: YIMI GRUBER PA-C REPORT IS CONFIDENTIAL AND NOT TO BE RELEASED WITHOUT AUTHORIZATION
== END 2022-07-24 12:05 | disposition home or self-care (01) ==
LOC: DS 06:50
PROVIDERS: ATTEND Specialist
PROC: 0SJC4ZZ Inspection of Right Knee Joint, Percutaneous Endoscopic Approach (ICD-10-PCS; principal; 2022-07-24 09:00)
DX: M22.41 Chondromalacia patellae, right knee (principal); Z87.891 Personal history of nicotine dependence; M17.10 Unilateral primary osteoarthritis, unspecified knee
CPT/HCPCS: J0690; J1100; J1885; J2001; J2405; J2704; J3010; J7121

== ENCOUNTER 2022-08-07 19:12 | Emergency (ER) | payer OTHER ==
[~2022-08-07] VITALS: Ht 177.8 cm; Wt 110.0 kg
[~2022-08-07 19:12] MED LIST changes: +DICLOFENAC SODI75 MG PO; +FLOVENT HFA10.6 GM INH; +HYDROCODON-ACE1 EA10 PO
[2022-08-07] MEDS ORDERED: LISINOPRIL10 MG PO (22:27)
[2022-08-07] MEDS ORDERED: CYCLOBENZAPRINE10 MG PO (22:27)
--- NOTE | 2022-08-08 20:59 | EKG ---
[facility] [address] [facility] [place] [address] Signed Normal sinus rhythm Normal ECG When compared with ECG of 10-JAN-2022 07:30, No significant change was found Confirmed by Yamile Robertson MD () on 08/08/2022 8:59:40 PM Electronically Signed By: YAMILE ROBERTSON MD 08/08/222058 PATIENT NAME: CAROLE QUINTANA Electrocardiogram DATE OF : 77 PHYSICIAN: YAMILE ROBERTSON MD REPORT #: [id number] REPORT IS CONFIDENTIAL AND NOT TO BE RELEASED WITHOUT AUTHORIZATION
== END 2022-08-07 23:30 | disposition home or self-care (01) ==
LOC: ED 19:12
DX: I10 Essential (primary) hypertension (principal); R07.89 Other chest pain; K21.9 Gastro-esophageal reflux disease without esophagitis; J44.9 Chronic obstructive pulmonary disease, unspecified; F17.200 Nicotine dependence, unspecified, uncomplicated; Z79.899 Other long term (current) drug therapy
CPT/HCPCS: 36415; 71045; 80053; 83735; 83880; 84484; 85025; 85379; 85610; 93005; 93010; 96374; 99285-25

== ENCOUNTER 2022-08-11 09:38 | Emergency (ER) | payer OTHER ==
[~2022-08-11] VITALS: Ht 177.8 cm; Wt 110.0 kg
[~2022-08-11 09:38] MED LIST changes: +LISINOPRIL10 MG PO
--- OUTSIDE RECORDS SUMMARY | 2022-08-11 09:42 | XMS ---
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 PHONE: Unknown Marjorie Xiao Nurse Practitioner: Family Current PHONE: Unknown Elmo has no Care Guidelines for this patient. E.D. VISIT COUNT (12 MO.) 5 [facility] TOTAL 5 NOTE: Visits indicate total known visits. 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 - Chronic obstructive pulmonary disease, unspecified - Nicotine dependence, unspecified, uncomplicated - Other chest pain 06/05/2022 17:41 [facility] [place] TYPE: Emergency COMPLAINT: - TESTICULAR PAIN DIAGNOSES: - Other retirement (current) drug therapy - Gastro-esophageal reflux disease without esophagitis - Bilateral primary osteoarthritis of knee - Left testicular pain - Epididymitis 01/10/2022 06:04 [facility] [place] TYPE: Emergency COMPLAINT: - DIFFICULTY BREATHING DIAGNOSES: - Other retirement (current) drug therapy - Gastro-esophageal reflux disease without esophagitis - Contact with and (suspected) exposure to COVID-19 - Shortness of breath - Nicotine dependence, unspecified, uncomplicated 08/29/2021 21:10 [facility] [place] TYPE: Emergency COMPLAINT: - LT FOOT INJURY DIAGNOSES: - Pain in left foot - Gastro-esophageal reflux disease without esophagitis - Nicotine dependence, unspecified, uncomplicated - 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
[2022-08-11] MEDS ORDERED: VALACYCLOVIR1000 MG PO (10:19)
== END 2022-08-11 10:37 | disposition home or self-care (01) ==
LOC: ED 09:38
DX: B02.9 Zoster without complications (principal); K21.9 Gastro-esophageal reflux disease without esophagitis; J44.9 Chronic obstructive pulmonary disease, unspecified; F17.200 Nicotine dependence, unspecified, uncomplicated; Z79.899 Other long term (current) drug therapy
CPT/HCPCS: 99282

== ENCOUNTER 2022-10-30 09:38 | Day surgery (SDC) | payer OTHER ==
[~2022-10-30] VITALS: Ht 177.8 cm; Wt 113.6 kg
--- NOTE | ~2022-10-30 | OR ---
[facility] [address] [place], [place] [address] Draft DATE OF OPERATION: 10/30/2022 SURGEON: Aby Elise MD PREOPERATIVE DIAGNOSIS: Chondromalacia patellae, left. POSTOPERATIVE DIAGNOSIS: Chondromalacia patellae, left. PROCEDURE PERFORMED: Left knee arthroscopy with lateral release. SEAM RUBBING MACHINE OPERATOR: CHRIS Oliver. ANESTHESIA: General. BLOOD LOSS: Minimal. BRIEF HISTORY: Carole is a 47-year-old gentleman with pain in his knee. His MRI was consistent with overload of the lateral facet with some chondromalacia. Risks and benefits of operative treatment were discussed with him. He elected to proceed. DESCRIPTION OF PROCEDURE: Once consent was obtained, he was taken to the operating room. After adequate anesthesia, was placed on operating room table. Right leg was flexed, abducted, and externally rotated on a well-padded leg arevalo. The left was placed in well-padded leg arevalo with no tourniquet. The leg was then prepped and draped in a standard sterile fashion and the incision sites were injected with 0.25% Marcaine with epinephrine. The standard inferolateral and superolateral portals were established and the scope was introduced. Arthroscopic findings: The patella showed grade 2, one area of grade 3 chondromalacia. The trochlea was relatively intact. Medial and lateral gutters were clear. ACL and PCL were intact. Medial and lateral compartments were intact. There were no meniscus tears or chondral damage. There was no significant erythema or redness throughout the knee. PATIENT NAME: CAROLE QUINTANA OPERATIVE REPORT DATE OF : 77 REPORT #: [id number] PHYSICIAN: ABY ELISE MD PCP: YIMI GRUBER PA-C REPORT IS CONFIDENTIAL AND NOT TO BE RELEASED WITHOUT AUTHORIZATION [address] [address] Draft The patella did show tilt and slight subluxation. Description of operation: The scope was switched to the medial portal and the Mitek VAPR hook device was then placed through the lateral and a lateral release was performed with normalization of the alignment of the patella. This was visualized and documented. All bleeders were then cauterized and the scope was withdrawn from the knee and the wounds were closed with 3-0 nylon dressed with Adaptic, ABD, and Jorge wrap. He tolerated the procedure well. All sponge, needle, and instrument counts were correct. Aby Elise MD BA/MODL /[id number] Copies: ~ PATIENT NAME: CAROLE QUINTANA OPERATIVE REPORT DATE OF : [birth year] REPORT #: [id number] PHYSICIAN: ABY ELISE MD PCP: YIMI GRUBER PA-C REPORT IS CONFIDENTIAL AND NOT TO BE RELEASED WITHOUT AUTHORIZATION
[~2022-10-30 09:38] MED LIST changes: +HYDROXYZINE PAM50 MG PO; +TRAZODONE HCL50 MG PO; +VALACYCLOVIR1000 MG PO
[2022-10-30] MEDS ORDERED: LOSARTAN POTASS25 MG PO (10:57)
[2022-10-30] MEDS ORDERED: HYDROCODON-ACE1 EA10 PO (12:34)
[2022-10-30] MEDS ORDERED: CELECOXIB200 MG PO (12:34)
--- NOTE | 2022-10-30 13:24 | NUR ---
10/30/22 1324 Mindi Hair 1238 PT ARRIVED IN PACU SLEEPY. L LEG ELEVATED AND ICE PLACED. 1250 SNORING. REU. 1300 PT AWAKE AND TALKING TO STAFF. NO C/O'S. 1310 TO DS. REPORT GIVEN TO RN.
--- NOTE | 2022-10-30 13:25 | NUR ---
REPORT TAKEN FROM NAVJOT HOLDER. PT RESTING IN BED. DENIES PAIN AND NAUSEA. PT EATING CRACKERS AND DRINKING ICE WATER AT BEDSIDE. AT BEDSIDE. ICE ON LEFT KNEE WITH PILLOW UNDER LEFT KNEE. CALL LIGHT WITHIN REACH.
--- NOTE | 2022-10-30 14:15 | NUR ---
1400-ANSWERED PT'S CALL LIGHT. PT REQUESTS TO USE BATHROOM AND AMBULATES IN ROBLES WITH NO COMPLAINTS OF PAIN. PT ABLE TO VOID AND AMBULATES BACK TO BED. WARM AIR FROM EMELINA HUGGER APPLIED. CALL LIGHT WITHIN REACH. PT'S AT BEDSIDE
--- NOTE | 2022-10-30 14:44 | NUR ---
LE 1310: REPORT TAKEN FROM NAVJOT HOLDER. PT RESTING IN BED WITH AT BEDSIDE. DENIES PAIN OR NAUSEA. PT EATING CRACKERS AND DRINKING WATER. PILLOW UNDER LEFT KNEE. ICE ON LEFT KNEE. CALL LIGHT WITHIN REACH.
--- NOTE | 2022-10-30 14:47 | NUR ---
DISCHARGE INSTRUCTIONS REVIEWED WITH PT. NO QUESTIONS OR CONCERNS. NAVJOT HOLDER D/C IV, WNL, TIP INTACT. PT DRESSED IN PERSONAL CLOTHING WITH AT BEDSIDE. ICE PACK REPLACED. NAVJOT HOLDER D/C PT VIA WHEELCHAIR TO PERSONAL AUTOMOBILE TO .
== END 2022-10-30 14:30 | disposition home or self-care (01) ==
LOC: DS 09:38
PROVIDERS: ATTEND Specialist
PROC: 0MNP4ZZ Release Left Knee Bursa and Ligament, Percutaneous Endoscopic Approach (ICD-10-PCS; principal; 2022-10-30 12:30)
DX: M22.42 Chondromalacia patellae, left knee (principal); Z87.891 Personal history of nicotine dependence
CPT/HCPCS: J0131; J0690; J1100; J1885; J2001; J2250; J2405; J2704; J7121

== ENCOUNTER 2023-06-21 07:48 | Day surgery (SDC) | payer OTHER ==
[~2023-06-21] VITALS: Ht 177.8 cm; Wt 113.2 kg
[~2023-06-21 07:48] MED LIST changes: +ATOMOXETINE HCL40 MG PO; +CELECOXIB200 MG PO; -FLUOXETINE HCL20 MG; +FLUOXETINE HCL20 MG PO; +LOSARTAN POTASS25 MG PO; +OMEPRAZOLE40 MG PO; -VENTOLIN HFA18 GM; +VENTOLIN HFA18 GM INH
[2023-06-21 08:19] VITALS: BP 124/73
[2023-06-21] MEDS ORDERED: CIALIS5 MG PO (08:19)
--- NOTE | 2023-06-21 09:50 | NUR ---
06/21/23 0950 Barbara Wilkins 0916-PATIENT ARRIVED TO PACU ON 2L NC RR EVEN. PATIENT AWAKE DENIES PAIN OR NAUSEA. ABDOMEN SOFT LAYING LEFT LATERAL. IVF INFUSING. PATIENT PASSING GAS.
[2023-06-21 10:11] VITALS: BP 122/78
--- NOTE | 2023-06-25 08:53 | OR ---
[facility] [address] [place], [place] [address] Signed DATE OF OPERATION: 06/21/2023 SURGEON: Adalgisa Peres MD PREOPERATIVE DIAGNOSIS: History of serrated adenoma proximally descending colon in January 2022. POSTOPERATIVE DIAGNOSES: 1. Scattered diverticula. 2. Diminutive polyp of cecum and rectum. PROCEDURE: Total colonoscopy to cecum with cold morcellation polypectomy x2. ANESTHESIA: Intravenous sedation, fentanyl 150 mcg and Versed 5 mg. INDICATIONS: This 47-year-old white man underwent colonoscopy by me in January of 2022, at which time he was found to have polyps, one of which was a serrated adenoma of the proximal descending colon. Based on that histology, I have recommended short-term followup. The risk of bleeding, infection, and perforation related to colonoscopy was reviewed with him. Currently, the patient has no symptoms of bleeding, diarrhea, or constipation. FINDINGS: The prep was good. Complete colonoscopy was undertaken to the cecum. There was a diminutive polyp of the cecum and another of the rectum, both excised with cold morcellation technique. There were few scattered diverticula in the colon, but no other findings of concern. DESCRIPTION OF PROCEDURE: The patient was brought to the endoscopy suite and placed in lateral decubitus position given intravenous sedation to the point of slurred speech and nystagmus. Digital rectal examination was normal. An Olympus video colonoscope was passed into the rectum and manipulated throughout the colon, ultimately intubating the cecum itself. The ileocecal valve and appendiceal orifice were normal. Upon withdrawal of scope, a very diminutive polyp was noted in the junction between the right colon and the cecum, this was excised with cold morcellation technique. The scope was further withdrawn. There were no other findings other than a Electronically Signed By: ADALGISA PERES MD 06/25/23 0853 PATIENT NAME: CAROLE QUINTANA OPERATIVE REPORT DATE OF : 77 REPORT #: [id number] PHYSICIAN: ADALGISA PERES MD PCP: YIMI GRUBER PA-C REPORT IS CONFIDENTIAL AND NOT TO BE RELEASED WITHOUT AUTHORIZATION [facility] [address] [place], [place] [address] Signed few scattered diverticula until the rectum, where retroflexed view confirmed some probable diminutive polyps, they were excised as well. The scope was straightened, withdrawn, and removed. The patient was taken to the recovery room in good condition. CONCLUDING DIAGNOSIS: Diminutive polyps x2, minimal diverticula. PLAN: Recommend repeat colonoscopy in 5-7 years or sooner if symptoms should occur. I would recommend a high-fiber diet otherwise. He will return to the ongoing care of CHRIS Diallo. MD DONITA Max/BO /[id number] cc: CHRIS Diallo Copies: ~ Electronically Signed By: ADALGISA PERES MD 06/25/23 0853 PATIENT NAME: CAROLE QUINTANA OPERATIVE REPORT DATE OF : 77 REPORT #: [id number] PHYSICIAN: ADALGISA PERES MD PCP: YIMI GRUBER PA-C REPORT IS CONFIDENTIAL AND NOT TO BE RELEASED WITHOUT AUTHORIZATION
== END 2023-06-21 10:15 | disposition home or self-care (01) ==
LOC: OPS 07:48 → DS 07:48 → OPS 09:00 → DS 09:00 → OPS 09:45 → DS 12:15
PROVIDERS: ATTEND Surgery
PROC: 0DBP8ZX Excision of Rectum, Via Natural or Artificial Opening Endoscopic, Diagnostic (ICD-10-PCS; 2023-06-21)
PROC: 0DBH8ZX Excision of Cecum, Via Natural or Artificial Opening Endoscopic, Diagnostic (ICD-10-PCS; principal; 2023-06-21 09:45)
DX: D12.0 Benign neoplasm of cecum (principal); K62.1 Rectal polyp; K57.30 Diverticulosis of large intestine without perforation or abscess without bleeding; Z86.010 Personal history of colon polyps; K62.5 Hemorrhage of anus and rectum; K52.9 Noninfective gastroenteritis and colitis, unspecified; Z90.49 Acquired absence of other specified parts of digestive tract; K21.9 Gastro-esophageal reflux disease without esophagitis; Z79.899 Other long term (current) drug therapy
CPT/HCPCS: 88305; 99153; G0500; J2250; J3010; J7121

== ENCOUNTER 2024-01-10 09:06 | Emergency (ER) | payer OTHER ==
[~2024-01-10] VITALS: Ht 177.8 cm; Wt 115.7 kg
[~2024-01-10 09:06] MED LIST changes: +CIALIS5 MG PO; +PAXLOVID 300-11 EAC1 PO; +PRAZOSIN HCL1 MG PO
[2024-01-10] MEDS ORDERED: MELOXICAM15 MG PO (09:56)
[2024-01-10 10:07] VITALS: BP 153/105
== END 2024-01-10 10:07 | disposition home or self-care (01) ==
LOC: ED 09:06
DX: S69.91XA Unspecified injury of right wrist, hand and finger(s), initial encounter (principal); W22.8XXA Striking against or struck by other objects, initial encounter; F17.200 Nicotine dependence, unspecified, uncomplicated; Z79.899 Other long term (current) drug therapy
CPT/HCPCS: 73110; 99283-25

== ENCOUNTER 2024-05-07 10:36 | Emergency (ER) | payer OTHER ==
[~2024-05-07] VITALS: Ht 177.8 cm; Wt 111.4 kg
--- NOTE | ~2024-05-07 | EKG ---
[facility] [address] [facility] [place], [place] [address] Draft EK completed, results pending confirmation PATIENT NAME: SIVANEDCAROLE Electrocardiogram DATE OF : 77 PHYSICIAN: PRELIMINARY REPORT #: [id number] REPORT IS CONFIDENTIAL AND NOT TO BE RELEASED WITHOUT AUTHORIZATION
[~2024-05-07 10:36] MED LIST changes: +MELOXICAM15 MG PO
[2024-05-07] MEDS ORDERED: LISINOPRIL5 MG PO (10:41)
[2024-05-07] MEDS ORDERED: ASPIRIN 81 MG CHEW PO ONE (10:45)
[2024-05-07 10:55] LABS: BASOPHILS 0.8 % (0-2); EOSINOPHILS 0.8 % (0-6); HEMATOCRIT 48.3 % (35.0-50.0); HEMOGLOBIN 16.4 g/dL (12.0-18.0); LYMPHOCYTES 36.1 % (24-44); MCH 30.7 (27-36); MCV 90.3 fl (81-99); MONOCYTES 7.3 % (0-12); PLATELET COUNT 320 K/uL (140-440); RBC 5.35 M/ul (4.3-5.7); RDW 13.7 (10.5-15.0)
[2024-05-07] MEDS ORDERED: ALBUTEROL/IPRATROPIUM 3 ML NEB INH ONE (11:00)
[2024-05-07 11:18] LABS: ALBUMIN 3.8 g/dL (3.4-5.0); ANION GAP 10.6 (7-21); BILIRUBIN, TOTAL 0.5 ng/dL (0.2-1.0); BUN/CREATININE RATIO 9.92 (6.0-28.6); CALCIUM 9.3 mg/dL (8.5-10.1); CREATININE, SERUM 1.41 mg/dL (0.70-1.30); MAGNESIUM 2.1 mg/dL (1.8-2.4); POTASSIUM 3.6 mmol/L (3.5-5.1); PROTEIN, TOTAL 7.6 g/dL (6.4-8.2)
[2024-05-07] MEDS ORDERED: KETOROLAC TROMETHAMINE 30 MG/ML VIAL IV ONE (11:30)
[2024-05-07 13:12] VITALS: BP 141/79
== END 2024-05-07 13:13 | disposition home or self-care (01) ==
LOC: ED 10:36
PROVIDERS: Emergency Medicine
DX: R07.89 Other chest pain (principal); F17.200 Nicotine dependence, unspecified, uncomplicated; Z79.899 Other long term (current) drug therapy; K21.9 Gastro-esophageal reflux disease without esophagitis
CPT/HCPCS: 36415; 71045; 80053; 83735; 84484; 85025; 85379; 93005; 93010; 94640; 96374; 99285-25; A9270; J1885

== ENCOUNTER 2024-09-24 20:14 | Emergency (ER) | payer OTHER ==
[~2024-09-24] VITALS: Ht 177.8 cm; Wt 105.2 kg
[~2024-09-24 20:14] MED LIST changes: +ATIVAN0.5 MG PO; +LISINOPRIL5 MG PO
[2024-09-24] MEDS ORDERED: MIDAZOLAM HCL 2 MG/2 ML VIAL ONE (20:16)
[2024-09-24 20:22] LABS: BASE EXCESS, BLOOD GAS 1.3 mmol/L (-2-2); HCO3, BLOOD GAS 25.1 mmol/L (22-26); O2 SATURATION, BLOOD GAS 96.7 % (95.0-100.0); PH, BLOOD GAS 7.45 (7.35-7.45); PO2, BLOOD GAS 80 mmHg (80-100); TOTAL CO2, BLOOD GAS 26.3
[2024-09-24 20:23] LABS: OXYGEN RECEIVED, BLOOD GAS ROOM AIR
[2024-09-24] MEDS ORDERED: ETOMIDATE 40 MG/20 ML VIAL IV ONE (20:30)
[2024-09-24 20:38] LABS: BASOPHILS 0.7 % (0-2); EOSINOPHILS 0.7 % (0-6); HEMATOCRIT 45.4 % (35.0-50.0); HEMOGLOBIN 15.3 g/dL (12.0-18.0); LYMPHOCYTES 35.9 % (24-44); MCH 30.8 (27-36); MCHC 33.6 g/dl (30-36); MCV 91.6 fl (81-99); MONOCYTES 7.6 % (0-12); NEUTROPHILS 55.1 % (39-80); PLATELET COUNT 281 K/uL (140-440); RBC 4.96 M/ul (4.3-5.7); RDW 13.7 (10.5-15.0)
[2024-09-24 20:51] LABS: ALBUMIN 3.7 g/dL (3.4-5.0); ALBUMIN/GLOBULIN RATIO 1.19 (1.1-2.4); ANION GAP 14.2 (7-21); BILIRUBIN, TOTAL 0.4 ng/dL (0.2-1.0); BUN/CREATININE RATIO 11.4 (6.0-28.6); CALCIUM 8.5 mg/dL (8.5-10.1); CREATININE, SERUM 1.49 mg/dL (0.70-1.30); POTASSIUM 3.2 mmol/L (3.5-5.1); PROTEIN, TOTAL 6.8 g/dL (6.4-8.2)
[2024-09-24] MEDS ORDERED: LORazepam 2 MG/ML VIAL IV ONE (21:00)
[2024-09-24] MEDS ORDERED: LORazepam 1 MG HOME.PACK PO ONE (22:45)
[2024-09-24] MEDS ORDERED: AZITHROMYCIN 250 MG HOME.PACK PO ONE (22:45)
[2024-09-24] MEDS ORDERED: methylPREDNISolone 4 MG HOME.PACK PO ONE (22:45)
[2024-09-24 22:55] VITALS: BP 114/83
== END 2024-09-24 22:56 | disposition home or self-care (01) ==
LOC: ED 20:14
PROVIDERS: Family Medicine
DX: J44.1 Chronic obstructive pulmonary disease with (acute) exacerbation (principal); F17.200 Nicotine dependence, unspecified, uncomplicated; Z79.899 Other long term (current) drug therapy
CPT/HCPCS: 36415; 36600; 71045; 80053; 82803; 85025; 96374; 96375; 99285-25; J2060

== ENCOUNTER 2024-10-21 11:22 | Emergency (ER) | payer OTHER ==
[~2024-10-21] VITALS: Ht 177.8 cm; Wt 100.2 kg
--- OUTSIDE RECORDS SUMMARY | 2024-10-21 11:23 | XMS ---
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 Victoriano VISIT COUNT (12 MO.) [address] [place] [address] TOTAL 6 NOTE: Visits indicate total known visits. 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 - Striking against or struck by other objects, initial encounter - Unspecified injury of right wrist, hand and finger(s), initial encounter 11/26/2023 15:34 [facility] [place] TYPE: Emergency COMPLAINT: - MEDICAL CLEARANCE DIAGNOSES: - Bilateral primary osteoarthritis of knee - Chronic obstructive pulmonary disease, unspecified - Encounter for other general examination - Gastro-esophageal reflux disease without esophagitis - manager law (current) use of inhaled steroids - Nicotine dependence, unspecified, uncomplicated - 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
[2024-10-21 11:44] LABS: BASOPHILS 1.8 % (0-2); EOSINOPHILS 0.7 % (0-6); HEMATOCRIT 48.1 % (35.0-50.0); HEMOGLOBIN 16.6 g/dL (12.0-18.0); LYMPHOCYTES 31.5 % (24-44); MCH 31.9 (27-36); MCHC 34.6 g/dl (30-36); MCV 92.3 fl (81-99); MONOCYTES 6.8 % (0-12); NEUTROPHILS 59.2 % (39-80); PLATELET COUNT 305 K/uL (140-440); RBC 5.21 M/ul (4.3-5.7); RDW 14.2 (10.5-15.0)
[2024-10-21] MEDS ORDERED: SODIUM CHLORIDE 0.9% 1,000 ML IV ONE (11:45)
[2024-10-21] MEDS ORDERED: PANTOPRAZOLE SODIUM 40 MG/10 ML VIAL IV ONE (11:45)
[2024-10-21 11:52] LABS: ALBUMIN 3.7 g/dL (3.4-5.0); ALBUMIN/GLOBULIN RATIO 1.23 (1.1-2.4); ANION GAP 12.5 (7-21); BILIRUBIN, TOTAL 0.4 ng/dL (0.2-1.0); BUN/CREATININE RATIO 9.49 (6.0-28.6); CALCIUM 8.8 mg/dL (8.5-10.1); CREATININE, SERUM 1.58 mg/dL (0.70-1.30); POTASSIUM 3.5 mmol/L (3.5-5.1); PROTEIN, TOTAL 6.7 g/dL (6.4-8.2)
[2024-10-21 12:13] LABS: LACTIC ACID, BLOOD 1.4 mmol/L (0.4-2.0)
[2024-10-21 13:57] LABS: BILIRUBIN, URINE NEGATIVE (negative); BLOOD/HGB, URINE NEGATIVE (Negative); KETONE, URINE NEGATIVE (Negative); LEUK ESTERASE, URINE NEGATIVE (negative); NITRITE, URINE NEGATIVE (negative)
[2024-10-21 14:23] VITALS: BP 139/91
== END 2024-10-21 14:23 | disposition home or self-care (01) ==
LOC: ED 11:22
PROVIDERS: Emergency Medicine
DX: R10.32 Left lower quadrant pain (principal); R10.12 Left upper quadrant pain; R94.4 Abnormal results of kidney function studies; K62.5 Hemorrhage of anus and rectum; I10 Essential (primary) hypertension; J44.89 Other specified chronic obstructive pulmonary disease; N40.0 Benign prostatic hyperplasia without lower urinary tract symptoms; F17.200 Nicotine dependence, unspecified, uncomplicated; Z79.899 Other long term (current) drug therapy
CPT/HCPCS: 36415; 74177; 80053; 81003; 83605; 83690; 85025; 99284-25; J2470; J7030; Q9967